=== PATIENT | female | born 1980 | race Asian ===

== ENCOUNTER 2018-07-12 12:13 | Emergency (ER) | payer OTHER, SELFPAY ==
[2018-07-12 12:19] VITALS: BP 136/77; PULSE 72; RESP 16; TEMP 36.8; O2SAT 99; BMI 36.6
--- NOTE | 2018-07-12 12:33 | ED.ABDPAIN ---
HPI - Abdominal Pain <MEL Nolasco - Last Filed: 07/12/18 15:07> General Chief Complaint: Abdominal Pain Stated Complaint: upper abdominal pain Time Seen by Provider: 07/12/18 12:19 Source: patient and family Mode of arrival: ambulatory Limitations: no limitations History of Present Illness HPI narrative: The patient is a 37-year-old female nonsmoker who presents with with a chief complaint of right upper quadrant pain. She states that the right upper quadrant pain is gone on sporadically for several months. However today her pain presented upon waking and has not gone away today. She has not taken anything at home for the pain. She denies any fevers, vomiting or diarrhea. She denies any nausea dysuria urgency or frequency. She states the pain stays in her right upper quadrant does not radiate anywhere. She was started on metformin for concern of prediabetes and weight gain recently. She denies any abdominal surgeries, daily medications other than control metformin. Last bowel movement was today and normal. Related Data Allergies Allergy/AdvReac Type Severity Reaction Status Date / Time No Known Drug Allergies Allergy Verified 07/12/18 12:53 Review of Systems <MEL Nolasco - Last Filed: 07/12/18 15:07> Constitutional Denies body ache(s), Denies chills, Denies fever(s), Denies headache(s) and Denies lethargy ENT Ears, Nose, Mouth, and Throat: Denies headache(s) Cardiovascular Denies chest pain, Denies chest pain at rest, Denies chest pain with activity, Denies syncope and Denies rapid heart rate Respiratory Denies chest congestion, Denies cough and Denies wheezing Gastrointestinal Gastrointestinal: Reports abdominal pain, Denies change in bowel habits, Denies constipation, Reports cramping, Denies diarrhea, Denies nausea and Denies vomiting Genitourinary Denies urinary frequency, Denies dysuria, Denies flank pain, Denies urinary incontinence, Denies urinary hesitancy and Denies urinary urgency Musculoskeletal Reports system reviewed and no additional complaints, except as docu Neurologic Denies confusion, Denies syncope and Denies headache(s) Psychiatric Denies anxiety, Denies confusion, Denies depression, Denies homicidal ideation and Denies suicidal ideation Allergic/Immunologic Denies wheezing PFSH <MEL Nolasco - Last Filed: 07/12/18 15:07> Social History Smoking Status: Never smoker Social History Smoking Status: Never smoker Exam <SERAFIN Nolasco - Last Filed: 07/12/18 15:07> Narrative Exam Narrative: GENERAL: This is a well-nourished, well-developed patient, In no acute distress with at bedside. HEAD: Atraumatic. Normocephalic. No temporal or scalp tenderness. EYES: Pupils equal round and reactive. Extraocular motions intact. No scleral icterus. No injection or drainage. ENT: Nose without bleeding, purulent drainage or septal hematoma. Throat without erythema, tonsillar hypertrophy or exudate. Uvula midline. Airway patent. NECK: Trachea midline. No JVD or lymphadenopathy. Supple, nontender, no meningeal signs. CARDIOVASCULAR: Regular rate and rhythm without murmurs, gallops, or rubs. RESPIRATORY: Clear to auscultation. Breath sounds equal bilaterally. No wheezes, rales, or rhonchi. No cough. No increased respiratory effort. No accessory muscle use. GASTROINTESTINAL: Abdomen soft,, nondistended. No hepato-splenomegaly, or palpable masses. No guarding. Active bowel sounds all 4 quadrants. Positive Ashley sign. EXTREMITIES: No clubbing, cyanosis, or edema. No joint tenderness, effusion, or edema noted. BACK: Nontender without deformity or crepitance. No flank tenderness. NEURO: AOx3. SKIN: No rash or erythema. Initial Vital Signs Initial Vital Signs: Vital Signs Temperature 98.3 F 07/12/18 12:19 Pulse Rate 72 07/12/18 12:19 Respiratory Rate 16 07/12/18 12:19 Blood Pressure 136/77 07/12/18 12:19 Pulse Oximetry 99 07/12/18 12:19 <Laurie Mcdonald DO - Last Filed: 07/12/18 17:24> Initial Vital Signs Initial Vital Signs: Vital Signs Temperature 98.3 F 07/12/18 12:19 Pulse Rate 72 07/12/18 12:19 Respiratory Rate 16 07/12/18 12:19 Blood Pressure 136/77 07/12/18 12:19 Pulse Oximetry 99 07/12/18 12:19 Course <SERAFIN Nolasco - Last Filed: 07/12/18 15:07> Orders Ordered: ED Orders 07/12/18 12:20 Amylase Stat Complete Blood Count AUTO DIFF Stat Comprehensive Metabolic Panel Stat Lipase Stat 07/12/18 12:32 US abdomen complete Stat 07/12/18 13:00 Urine Microscopic Stat Discontinued Medications Sodium Chloride (Normal Saline 0.9%) 1,000 mls @ 1,000 mls/hr IV BOLUS ONE Stop: 07/12/18 13:30 Last Infusion: 07/12/18 13:59 Dose: 0 mls/hr Admin: 07/12/18 12:53 Dose: 1,000 mls/hr Vital Signs - 8 hr 07/12/18 12:19 07/12/18 14:06 Temperature 98.3 F Pulse Rate 72 66 Respiratory Rate 16 17 Blood Pressure 136/77 Blood Pressure [Right Arm] 155/72 H Pulse Oximetry 99 100 <Laurie Mcdonald DO - Last Filed: 07/12/18 17:24> Orders Ordered: ED Orders 07/12/18 12:20 Amylase Stat Complete Blood Count AUTO DIFF Stat Comprehensive Metabolic Panel Stat Lipase Stat 07/12/18 12:32 US abdomen complete Stat 07/12/18 13:00 Urine Microscopic Stat Discontinued Medications Sodium Chloride (Normal Saline 0.9%) 1,000 mls @ 1,000 mls/hr IV BOLUS ONE Stop: 07/12/18 13:30 Last Infusion: 07/12/18 13:59 Dose: 0 mls/hr Admin: 07/12/18 12:53 Dose: 1,000 mls/hr Vital Signs - 8 hr 07/12/18 12:19 07/12/18 14:06 Temperature 98.3 F Pulse Rate 72 66 Respiratory Rate 16 17 Blood Pressure 136/77 Blood Pressure [Right Arm] 155/72 H Pulse Oximetry 99 100 MDM - Abdominal Pain <SERAFIN Nolasco - Last Filed: 07/12/18 15:07> Lab Data Result diagrams: 07/12/18 12:20 07/12/18 12:20 Lab Results 07/12/18 07/12/18 07/12/18 Range/Units 12:20 12:20 13:00 WBC 5.2 (4.5-11.0) X10^3/uL RBC 5.15 (4.0-5.2) X10^6/uL Hgb 14.2 (12.0-16.0) g/dL Hct 41.9 (36-46) % MCV 81.3 (80-100) fL MCH 27.6 (26-34) PG MCHC 33.9 (30-36) % RDW 13.3 (11.6-14.8) % Plt Count 322 (150-400) X10^3/uL Neut % (Auto) 62.0 (50-75) % Lymph % (Auto) 29.9 (25-40) % [place] % (Auto) 6.1 (3-14) % Eos % (Auto) 1.6 L (2-4) % Baso % (Auto) 0.4 (0-2) % Neut # (Auto) 3200 (1951-6344) /uL Lymph # (Auto) 1600 (1686-2587) /uL [place] # (Auto) 300 (0-900) /uL Eos # (Auto) 100 (0-450) /uL Baso # (Auto) 0 (0-100) /uL Sodium 138 (137-145) mmol/L Potassium 3.6 (3.4-5.1) mmol/L Chloride 102 (98-107) mmol/L Carbon Dioxide 24 (22-32) mmol/L BUN 13 (7-17) mg/dL Creatinine 0.70 (0.52-1.04) mg/dL Estimated GFR > 60.0 (>60) mL/min BUN/Creatinine Ratio 18.6 (6-22) Glucose 87 (70-100) mg/dL Calcium 9.1 (8.4-10.2) mg/dL Total Bilirubin 0.3 (0.2-1.3) mg/dL AST 25 (14-36) IU/L ALT 36 (9-52) IU/L Alkaline Phosphatase 47 (38-126) U/L Total Protein 7.9 (6.3-8.2) g/dL Albumin 4.7 (3.5-5.0) g/dL Globulin 3.2 (1.7-4.1) g/dL Albumin/Globulin Ratio 1.5 (1.0-2.8) Amylase 71 (30-110) U/L Lipase 72 (23-300) U/L Urine RBC 0-1/hpf (0-5/HPF) Urine WBC 0-1/hpf (0-5/HPF) Ur Squamous Epith Cells 5-10 /hpf H Urine Bacteria Occasional (0-1) (None) Ur Culture Indicated? Cult not indicated Point of care testing: Point of Care Testing Test Results Negative Urine Dip Bedside Urine Glucose Negative Bedside Urine Bilirubin - Negative Bedside Urine Ketone - Negative Urine Specific [place] 1.025 Bedside Urine Occult Blood +/- Bedside Urine pH 5.5 Bedside Urine Protein - Negative Bedside Urine Urobilinogen - Negative Bedside Urine Nitrite - Negative Bedside Urine Leukocytes - Negative Esterase Imaging Data US - abdomen: Radiologist's impression: [address] [address] Ultrasound Report Signed Patient: Maria E Arauz [facility]#: [id number] : 1980Acct:[id number] Age/Sex: 37 / FDate of Service: 07/12/18 Loc: ED Accession Number: [id number] Procedure: US abdomen complete Ordering Provider: Rachel Cunningham PROCEDURE: US ABDOMEN COMPLETE INDICATIONS: RIGHT UPPER QUADRANT PAIN TECHNIQUE: Real-time scanning was performed of the abdominal and retroperitoneal organs, with image documentation. COMPARISON: None. FINDINGS: Liver: Liver is normal in size and homogeneous in echotexture. Gallbladder: Gallbladder is within normal limits. No sonographic Ashley's sign. Biliary ducts: Intrahepatic bile ducts are non-dilated. Extrahepatic bile duct caliber measures 5.3 mm. Normal is 6-7 mm or less in diameter, or 10 mm or less post-cholecystectomy. Pancreas: Visualized portions of the pancreas are sonographically normal. Spleen: Spleen is normal in size and homogeneous in echotexture. Kidneys: Kidneys are normal in size and echotexture. Right kidney measures 12.2 cm long; left kidney measures 13.2 cm long. No hydronephrosis or nephrolithiasis. No solid masses. Aorta: Visualized aorta is normal in caliber at less than 3 cm. Iliacs: Proximal common iliac arteries are normal in caliber at less than 2.5 cm. IVC: Intrahepatic inferior vena cava is patent. Miscellaneous: No free abdominal fluid. IMPRESSION: Unremarkable ultrasound examination of abdomen. No findings to explain patient's symptoms. Dictated by: Shan Webb M.D. on 07/12/2018 at 14:21 Approved by: Shan Webb M.D. on 07/12/2018 at 14:22 [facility] [place] Narrative Medical decision making narrative: The patient is a 37-year-old female who presents with right upper quadrant pain that has gone on for weeks and got worse over the past 2 days. Given the etiology and positive Ashley sign, I obtained an ultrasound and worked her up for possible gallbladder. She does not have any fever, has normal white blood cell count, hemodynamically stable, and has a normal ultrasound. The patient declined any nausea or pain medication. Upon re-evaluation, she was asleep in the room. I discussed at length that she needs to follow up with her primary care provider. Discussed return precautions of fever with abdominal pain, inability keep down fluids or acute concerns. The patient was hemodynamically stable, comfortable and appear to rest well throughout her stay in the emergency department. She had no questions or concerns upon discharge. <Laurie Mcdonald, DO - Last Filed: 07/12/18 17:24> Lab Data Lab Results 07/12/18 07/12/18 07/12/18 Range/Units 12:20 12:20 13:00 WBC 5.2 (4.5-11.0) X10^3/uL RBC 5.15 (4.0-5.2) X10^6/uL Hgb 14.2 (12.0-16.0) g/dL Hct 41.9 (36-46) % MCV 81.3 (80-100) fL MCH 27.6 (26-34) PG MCHC 33.9 (30-36) % RDW 13.3 (11.6-14.8) % Plt Count 322 (150-400) X10^3/uL Neut % (Auto) 62.0 (50-75) % Lymph % (Auto) 29.9 (25-40) % [place] % (Auto) 6.1 (3-14) % Eos % (Auto) 1.6 L (2-4) % Baso % (Auto) 0.4 (0-2) % Neut # (Auto) 3200 (2427-8195) /uL Lymph # (Auto) 1600 (3658-5430) /uL [place] # (Auto) 300 (0-900) /uL Eos # (Auto) 100 (0-450) /uL Baso # (Auto) 0 (0-100) /uL Sodium 138 (137-145) mmol/L Potassium 3.6 (3.4-5.1) mmol/L Chloride 102 (98-107) mmol/L Carbon Dioxide 24 (22-32) mmol/L BUN 13 (7-17) mg/dL Creatinine 0.70 (0.52-1.04) mg/dL Estimated GFR > 60.0 (>60) mL/min BUN/Creatinine Ratio 18.6 (6-22) Glucose 87 (70-100) mg/dL Calcium 9.1 (8.4-10.2) mg/dL Total Bilirubin 0.3 (0.2-1.3) mg/dL AST 25 (14-36) IU/L ALT 36 (9-52) IU/L Alkaline Phosphatase 47 (38-126) U/L Total Protein 7.9 (6.3-8.2) g/dL Albumin 4.7 (3.5-5.0) g/dL Globulin 3.2 (1.7-4.1) g/dL Albumin/Globulin Ratio 1.5 (1.0-2.8) Amylase 71 (30-110) U/L Lipase 72 (23-300) U/L Urine RBC 0-1/hpf (0-5/HPF) Urine WBC 0-1/hpf (0-5/HPF) Ur Squamous Epith Cells 5-10 /hpf H Urine Bacteria Occasional (0-1) (None) Ur Culture Indicated? Cult not indicated Point of care testing: Point of Care Testing Test Results Negative Urine Dip Bedside Urine Glucose Negative Bedside Urine Bilirubin - Negative Bedside Urine Ketone - Negative Urine Specific [place] 1.025 Bedside Urine Occult Blood +/- Bedside Urine pH 5.5 Bedside Urine Protein - Negative Bedside Urine Urobilinogen - Negative Bedside Urine Nitrite - Negative Bedside Urine Leukocytes - Negative Esterase Discharge Plan Departure Patient Disposition: Home Clinical Impression: Abdominal pain Qualifiers: Abdominal location: right upper quadrant Qualified Code(s): R10.11 - Right upper quadrant pain Discharge Date/Time: 07/12/18 14:53 Interventions: ED Discharge Assessment Last Done: 07/12/18 14:52 Instructions: DI for Abdominal Pain-Adult Activity Restrictions/Additional Instructions: Her lab work, urinalysis and ultrasound came back well today. Please follow up with primary care provider. Please come back to the emergency department for acute concerns including concern of heart attack or stroke, combination of abdominal pain with fever, inability keep down food or fluids. Please follow up with primary care provider in the next few days. Referrals: Lisa Shaffer MD [Primary Care Provider] - Stand Alone Forms: Work Release Note <Laurie Mcdonald DO - Last Filed: 07/12/18 17:24> Cosign ED Attending Cosignature Attestation: I was immediately available in the department for consultation. Documentation has been reviewed. I agree with assessment and plan.
--- NOTE | 2018-07-12 12:37 | ED_ITS ---
HPI - Abdominal Pain <MEL Nolasco - Last Filed: 07/12/18 15:07> General Chief Complaint: Abdominal Pain Stated Complaint: upper abdominal pain Time Seen by Provider: 07/12/18 12:19 Source: patient and family Mode of arrival: ambulatory Limitations: no limitations History of Present Illness HPI narrative: The patient is a 37-year-old female nonsmoker who presents with with a chief complaint of right upper quadrant pain. She states that the right upper quadrant pain is gone on sporadically for several months. However today her pain presented upon waking and has not gone away today. She has not taken anything at home for the pain. She denies any fevers, vomiting or diarrhea. She denies any nausea dysuria urgency or frequency. She states the pain stays in her right upper quadrant does not radiate anywhere. She was started on metformin for concern of prediabetes and weight gain recently. She denies any abdominal surgeries, daily medications other than control metformin. Last bowel movement was today and normal. Related Data Allergies Allergy/AdvReac Type Severity Reaction Status Date / Time No Known Drug Allergies Allergy Verified 07/12/18 12:53 Review of Systems <MEL Nolasco - Last Filed: 07/12/18 15:07> Constitutional Denies body ache(s), Denies chills, Denies fever(s), Denies headache(s) and Denies lethargy ENT Ears, Nose, Mouth, and Throat: Denies headache(s) Cardiovascular Denies chest pain, Denies chest pain at rest, Denies chest pain with activity, Denies syncope and Denies rapid heart rate Respiratory Denies chest congestion, Denies cough and Denies wheezing Gastrointestinal Gastrointestinal: Reports abdominal pain, Denies change in bowel habits, Denies constipation, Reports cramping, Denies diarrhea, Denies nausea and Denies vomiting Genitourinary Denies urinary frequency, Denies dysuria, Denies flank pain, Denies urinary incontinence, Denies urinary hesitancy and Denies urinary urgency Musculoskeletal Reports system reviewed and no additional complaints, except as docu Neurologic Denies confusion, Denies syncope and Denies headache(s) Psychiatric Denies anxiety, Denies confusion, Denies depression, Denies homicidal ideation and Denies suicidal ideation Allergic/Immunologic Denies wheezing PFSH <MEL Nolasco - Last Filed: 07/12/18 15:07> Social History Smoking Status: Never smoker Social History Smoking Status: Never smoker Exam <SERAFIN Nolasco - Last Filed: 07/12/18 15:07> Narrative Exam Narrative: GENERAL: This is a well-nourished, well-developed patient, In no acute distress with at bedside. HEAD: Atraumatic. Normocephalic. No temporal or scalp tenderness. EYES: Pupils equal round and reactive. Extraocular motions intact. No scleral icterus. No injection or drainage. ENT: Nose without bleeding, purulent drainage or septal hematoma. Throat without erythema, tonsillar hypertrophy or exudate. Uvula midline. Airway patent. NECK: Trachea midline. No JVD or lymphadenopathy. Supple, nontender, no meningeal signs. CARDIOVASCULAR: Regular rate and rhythm without murmurs, gallops, or rubs. RESPIRATORY: Clear to auscultation. Breath sounds equal bilaterally. No wheezes, rales, or rhonchi. No cough. No increased respiratory effort. No accessory muscle use. GASTROINTESTINAL: Abdomen soft,, nondistended. No hepato-splenomegaly, or palpable masses. No guarding. Active bowel sounds all 4 quadrants. Positive Ashley sign. EXTREMITIES: No clubbing, cyanosis, or edema. No joint tenderness, effusion, or edema noted. BACK: Nontender without deformity or crepitance. No flank tenderness. NEURO: AOx3. SKIN: No rash or erythema. Initial Vital Signs Initial Vital Signs: Vital Signs Temperature 98.3 F 07/12/18 12:19 Pulse Rate 72 07/12/18 12:19 Respiratory Rate 16 07/12/18 12:19 Blood Pressure 136/77 07/12/18 12:19 Pulse Oximetry 99 07/12/18 12:19 <Laurie Mcdonald DO - Last Filed: 07/12/18 17:24> Initial Vital Signs Initial Vital Signs: Vital Signs Temperature 98.3 F 07/12/18 12:19 Pulse Rate 72 07/12/18 12:19 Respiratory Rate 16 07/12/18 12:19 Blood Pressure 136/77 07/12/18 12:19 Pulse Oximetry 99 07/12/18 12:19 Course <SERAFIN Nolasco - Last Filed: 07/12/18 15:07> Orders Ordered: ED Orders 07/12/18 12:20 Amylase Stat Complete Blood Count AUTO DIFF Stat Comprehensive Metabolic Panel Stat Lipase Stat 07/12/18 12:32 US abdomen complete Stat 07/12/18 13:00 Urine Microscopic Stat Discontinued Medications Sodium Chloride (Normal Saline 0.9%) 1,000 mls @ 1,000 mls/hr IV BOLUS ONE Stop: 07/12/18 13:30 Last Infusion: 07/12/18 13:59 Dose: 0 mls/hr Admin: 07/12/18 12:53 Dose: 1,000 mls/hr Vital Signs - 8 hr 07/12/18 12:19 07/12/18 14:06 Temperature 98.3 F Pulse Rate 72 66 Respiratory Rate 16 17 Blood Pressure 136/77 Blood Pressure [Right Arm] 155/72 H Pulse Oximetry 99 100 <Laurie Mcdonald DO - Last Filed: 07/12/18 17:24> Orders Ordered: ED Orders 07/12/18 12:20 Amylase Stat Complete Blood Count AUTO DIFF Stat Comprehensive Metabolic Panel Stat Lipase Stat 07/12/18 12:32 US abdomen complete Stat 07/12/18 13:00 Urine Microscopic Stat Discontinued Medications Sodium Chloride (Normal Saline 0.9%) 1,000 mls @ 1,000 mls/hr IV BOLUS ONE Stop: 07/12/18 13:30 Last Infusion: 07/12/18 13:59 Dose: 0 mls/hr Admin: 07/12/18 12:53 Dose: 1,000 mls/hr Vital Signs - 8 hr 07/12/18 12:19 07/12/18 14:06 Temperature 98.3 F Pulse Rate 72 66 Respiratory Rate 16 17 Blood Pressure 136/77 Blood Pressure [Right Arm] 155/72 H Pulse Oximetry 99 100 MDM - Abdominal Pain <SERAFIN Nolasco - Last Filed: 07/12/18 15:07> Lab Data Result diagrams: 07/12/18 12:20 07/12/18 12:20 Lab Results 07/12/18 07/12/18 07/12/18 Range/Units 12:20 12:20 13:00 WBC 5.2 (4.5-11.0) X10^3/uL RBC 5.15 (4.0-5.2) X10^6/uL Hgb 14.2 (12.0-16.0) g/dL Hct 41.9 (36-46) % MCV 81.3 (80-100) fL MCH 27.6 (26-34) PG MCHC 33.9 (30-36) % RDW 13.3 (11.6-14.8) % Plt Count 322 (150-400) X10^3/uL Neut % (Auto) 62.0 (50-75) % Lymph % (Auto) 29.9 (25-40) % [place] % (Auto) 6.1 (3-14) % Eos % (Auto) 1.6 L (2-4) % Baso % (Auto) 0.4 (0-2) % Neut # (Auto) 3200 (0730-2237) /uL Lymph # (Auto) 1600 (4491-5786) /uL [place] # (Auto) 300 (0-900) /uL Eos # (Auto) 100 (0-450) /uL Baso # (Auto) 0 (0-100) /uL Sodium 138 (137-145) mmol/L Potassium 3.6 (3.4-5.1) mmol/L Chloride 102 (98-107) mmol/L Carbon Dioxide 24 (22-32) mmol/L BUN 13 (7-17) mg/dL Creatinine 0.70 (0.52-1.04) mg/dL Estimated GFR > 60.0 (>60) mL/min BUN/Creatinine Ratio 18.6 (6-22) Glucose 87 (70-100) mg/dL Calcium 9.1 (8.4-10.2) mg/dL Total Bilirubin 0.3 (0.2-1.3) mg/dL AST 25 (14-36) IU/L ALT 36 (9-52) IU/L Alkaline Phosphatase 47 (38-126) U/L Total Protein 7.9 (6.3-8.2) g/dL Albumin 4.7 (3.5-5.0) g/dL Globulin 3.2 (1.7-4.1) g/dL Albumin/Globulin Ratio 1.5 (1.0-2.8) Amylase 71 (30-110) U/L Lipase 72 (23-300) U/L Urine RBC 0-1/hpf (0-5/HPF) Urine WBC 0-1/hpf (0-5/HPF) Ur Squamous Epith Cells 5-10 /hpf H Urine Bacteria Occasional (0-1) (None) Ur Culture Indicated? Cult not indicated Point of care testing: Point of Care Testing Test Results Negative Urine Dip Bedside Urine Glucose Negative Bedside Urine Bilirubin - Negative Bedside Urine Ketone - Negative Urine Specific [place] 1.025 Bedside Urine Occult Blood +/- Bedside Urine pH 5.5 Bedside Urine Protein - Negative Bedside Urine Urobilinogen - Negative Bedside Urine Nitrite - Negative Bedside Urine Leukocytes - Negative Esterase Imaging Data US - abdomen: Radiologist's impression: [address] [address] Ultrasound Report Signed Patient: Maria E Arauz [facility]#: [id number] : 1980Acct:[id number] Age/Sex: 37 / FDate of Service: 07/12/18 Loc: ED Accession Number: [id number] Procedure: US abdomen complete Ordering Provider: Rachel Cunningham PROCEDURE: US ABDOMEN COMPLETE INDICATIONS: RIGHT UPPER QUADRANT PAIN TECHNIQUE: Real-time scanning was performed of the abdominal and retroperitoneal organs, with image documentation. COMPARISON: None. FINDINGS: Liver: Liver is normal in size and homogeneous in echotexture. Gallbladder: Gallbladder is within normal limits. No sonographic Ashley's sign. Biliary ducts: Intrahepatic bile ducts are non-dilated. Extrahepatic bile duct caliber measures 5.3 mm. Normal is 6-7 mm or less in diameter, or 10 mm or less post-cholecystectomy. Pancreas: Visualized portions of the pancreas are sonographically normal. Spleen: Spleen is normal in size and homogeneous in echotexture. Kidneys: Kidneys are normal in size and echotexture. Right kidney measures 12.2 cm long; left kidney measures 13.2 cm long. No hydronephrosis or nephrolithiasis. No solid masses. Aorta: Visualized aorta is normal in caliber at less than 3 cm. Iliacs: Proximal common iliac arteries are normal in caliber at less than 2.5 cm. IVC: Intrahepatic inferior vena cava is patent. Miscellaneous: No free abdominal fluid. IMPRESSION: Unremarkable ultrasound examination of abdomen. No findings to explain patient's symptoms. Dictated by: Shan Webb M.D. on 07/12/2018 at 14:21 Approved by: Shan Webb M.D. on 07/12/2018 at 14:22 [facility] Narrative Medical decision making narrative: The patient is a 37-year-old female who presents with right upper quadrant pain that has gone on for weeks and got worse over the past 2 days. Given the etiology and positive Ashley sign, I obtained an ultrasound and worked her up for possible gallbladder. She does not have any fever, has normal white blood cell count, hemodynamically stable, and has a normal ultrasound. The patient declined any nausea or pain medication. Upon re-evaluation, she was asleep in the room. I discussed at length that she needs to follow up with her primary care provider. Discussed return precautions of fever with abdominal pain, inability keep down fluids or acute concerns. The patient was hemodynamically stable, comfortable and appear to rest well throughout her stay in the emergency department. She had no questions or concerns upon discharge. <Laurie Mcdonald, DO - Last Filed: 07/12/18 17:24> Lab Data Lab Results 07/12/18 07/12/18 07/12/18 Range/Units 12:20 12:20 13:00 WBC 5.2 (4.5-11.0) X10^3/uL RBC 5.15 (4.0-5.2) X10^6/uL Hgb 14.2 (12.0-16.0) g/dL Hct 41.9 (36-46) % MCV 81.3 (80-100) fL MCH 27.6 (26-34) PG MCHC 33.9 (30-36) % RDW 13.3 (11.6-14.8) % Plt Count 322 (150-400) X10^3/uL Neut % (Auto) 62.0 (50-75) % Lymph % (Auto) 29.9 (25-40) % [place] % (Auto) 6.1 (3-14) % Eos % (Auto) 1.6 L (2-4) % Baso % (Auto) 0.4 (0-2) % Neut # (Auto) 3200 (3854-9028) /uL Lymph # (Auto) 1600 (3416-9156) /uL [place] # (Auto) 300 (0-900) /uL Eos # (Auto) 100 (0-450) /uL Baso # (Auto) 0 (0-100) /uL Sodium 138 (137-145) mmol/L Potassium 3.6 (3.4-5.1) mmol/L Chloride 102 (98-107) mmol/L Carbon Dioxide 24 (22-32) mmol/L BUN 13 (7-17) mg/dL Creatinine 0.70 (0.52-1.04) mg/dL Estimated GFR > 60.0 (>60) mL/min BUN/Creatinine Ratio 18.6 (6-22) Glucose 87 (70-100) mg/dL Calcium 9.1 (8.4-10.2) mg/dL Total Bilirubin 0.3 (0.2-1.3) mg/dL AST 25 (14-36) IU/L ALT 36 (9-52) IU/L Alkaline Phosphatase 47 (38-126) U/L Total Protein 7.9 (6.3-8.2) g/dL Albumin 4.7 (3.5-5.0) g/dL Globulin 3.2 (1.7-4.1) g/dL Albumin/Globulin Ratio 1.5 (1.0-2.8) Amylase 71 (30-110) U/L Lipase 72 (23-300) U/L Urine RBC 0-1/hpf (0-5/HPF) Urine WBC 0-1/hpf (0-5/HPF) Ur Squamous Epith Cells 5-10 /hpf H Urine Bacteria Occasional (0-1) (None) Ur Culture Indicated? Cult not indicated Point of care testing: Point of Care Testing Test Results Negative Urine Dip Bedside Urine Glucose Negative Bedside Urine Bilirubin - Negative Bedside Urine Ketone - Negative Urine Specific [place] 1.025 Bedside Urine Occult Blood +/- Bedside Urine pH 5.5 Bedside Urine Protein - Negative Bedside Urine Urobilinogen - Negative Bedside Urine Nitrite - Negative Bedside Urine Leukocytes - Negative Esterase Discharge Plan Departure Patient Disposition: Home Clinical Impression: Abdominal pain Qualifiers: Abdominal location: right upper quadrant Qualified Code(s): R10.11 - Right upper quadrant pain Discharge Date/Time: 07/12/18 14:53 Interventions: ED Discharge Assessment Last Done: 07/12/18 14:52 Instructions: DI for Abdominal Pain-Adult Activity Restrictions/Additional Instructions: Her lab work, urinalysis and ultrasound came back well today. Please follow up with primary care provider. Please come back to the emergency department for acute concerns including concern of heart attack or stroke, combination of a bdominal pain with fever, inability keep down food or fluids. Please follow up with primary care provider in the next few days. Referrals: Lisa Shaffer MD [Primary Care Provider] - Stand Alone Forms: Work Release Note <Laurie Mcdonald DO - Last Filed: 07/12/18 17:24> Cosign ED Attending Cosignature Attestation: I was immediately available in the department for consultation. Documentation has been reviewed. I agree with assessment and plan.
[2018-07-12 12:42] LABS: Add Manual Diff / Slide Review NO; Basophils Absolute Auto 0 /uL (0-100); Basophils Percent Auto 0.4 % (0-2); Eosinophils Absolute Auto 100 /uL (0-450); Eosinophils Percent Auto 1.6 % (2-4); Hematocrit 41.9 % (36-46); Hemoglobin 14.2 g/dL (12.0-16.0); Lymphocytes Absolute Auto 1600 /uL (1100-4500); Lymphocytes Percent Auto 29.9 % (25-40); Mean Corpuscular HGB Conc 33.9 % (30-36); Mean Corpuscular Hemoglobin 27.6 PG (26-34); Mean Corpuscular Volume 81.3 fL (80-100); Monocytes Absolute Auto 300 /uL (0-900); Monocytes Percent Auto 6.1 % (3-14); Neutrophils Absolute Auto 3200 /uL (1500-7000); Platelet Count 322 X10^3/uL (150-400); Red Blood Cell Count 5.15 X10^6/uL (4.0-5.2); Red Cell Distribution Width 13.3 % (11.6-14.8); White Blood Cell Count 5.2 X10^3/uL (4.5-11.0)
[2018-07-12 12:44] LABS: Alanine Aminotransferase 36 IU/L (9-52); Albumin 4.7 g/dL (3.5-5.0); Albumin Globulin Ratio 1.5 (1.0-2.8); Alkaline Phosphatase 47 U/L (38-126); Amylase 71 U/L (30-110); Aspartate Aminotransferase 25 IU/L (14-36); BUN Creatinine Ratio 18.6 (6-22); Bilirubin Total 0.3 mg/dL (0.2-1.3); Blood Urea Nitrogen 13 mg/dL (7-17); Calcium 9.1 mg/dL (8.4-10.2); Carbon Dioxide 24 mmol/L (22-32); Chloride 102 mmol/L (98-107); Estimated Glomerular Filt Rate > 60.0 mL/min (>60); Globulin 3.2 g/dL (1.7-4.1); Glucose 87 mg/dL (70-100); HEMOLYSIS < 15 (0-50); Lipase 72 U/L (23-300); Potassium 3.6 mmol/L (3.4-5.1); Sodium 138 mmol/L (137-145); Total Protein 7.9 g/dL (6.3-8.2)
[2018-07-12] MEDS: SODIUM CHLORIDE 0.9% 1,000 ML 1000 ML IV (12:53)
[2018-07-12 13:51] LABS: Bacteria Urine Occasional (0-1); Culture Indicated Urine Cult Not Indicated; RBC Urine 0-1/HPF (0-5/HPF); Squamous Epithelial Cell Urine 5-10 /HPF; WBC Urine 0-1/HPF (0-5/HPF)
[2018-07-12 14:06] VITALS: BP 155/72; PULSE 66; RESP 17; O2SAT 100
== END 2018-07-12 14:53 | disposition home or self-care (01) ==
PROVIDERS: Emergency Provider Nurse Practitioner Family; PCP Family Medicine
DX: R10.11 Right upper quadrant pain (principal)
CPT/HCPCS: 36591; 76700; 80053; 81003; 81015; 81025; 82150; 83690; 85025; 96360; 99283; 99284

== ENCOUNTER 2018-10-16 19:25 | Emergency (ER) | payer OTHER, SELFPAY ==
[2018-10-16 19:32] VITALS: BP 135/85; PULSE 67; RESP 14; TEMP 36.1; O2SAT 98
[2018-10-16 21:10] LABS: Add Manual Diff / Slide Review NO; Basophils Absolute Auto 0 /uL (0-100); Basophils Percent Auto 0.7 % (0-2); Eosinophils Absolute Auto 200 /uL (0-450); Eosinophils Percent Auto 2.8 % (2-4); Hematocrit 42.9 % (36-46); Hemoglobin 14.3 g/dL (12.0-16.0); Lymphocytes Absolute Auto 1900 /uL (1100-4500); Lymphocytes Percent Auto 31.6 % (25-40); Mean Corpuscular HGB Conc 33.4 % (30-36); Mean Corpuscular Hemoglobin 27.3 PG (26-34); Mean Corpuscular Volume 81.7 fL (80-100); Monocytes Absolute Auto 400 /uL (0-900); Monocytes Percent Auto 6.2 % (3-14); Neutrophils Absolute Auto 3500 /uL (1500-7000); Neutrophils Percent Auto 58.7 % (50-75); Platelet Count 234 X10^3/uL (150-400); Red Blood Cell Count 5.26 X10^6/uL (4.0-5.2); Red Cell Distribution Width 13.9 % (11.6-14.8)
[2018-10-16 21:25] LABS: Alanine Aminotransferase 54 IU/L (9-52); Albumin 4.5 g/dL (3.5-5.0); Albumin Globulin Ratio 1.4 (1.0-2.8); Alkaline Phosphatase 61 U/L (38-126); Aspartate Aminotransferase 38 IU/L (14-36); BUN Creatinine Ratio 23.3 (6-22); Bilirubin Total 0.4 mg/dL (0.2-1.3); Blood Urea Nitrogen 14 mg/dL (7-17); Calcium 8.8 mg/dL (8.4-10.2); Carbon Dioxide 22 mmol/L (22-32); Chloride 106 mmol/L (98-107); Estimated Glomerular Filt Rate > 60.0 mL/min (>60); Globulin 3.2 g/dL (1.7-4.1); Glucose 96 mg/dL (70-100); HEMOLYSIS 20 (0-50); Lipase 83 U/L (23-300); Sodium 141 mmol/L (137-145); Total Protein 7.7 g/dL (6.3-8.2)
[2018-10-16] MEDS: PANTOPRAZOLE 40 MG VIAL IV (21:26)
[2018-10-16] MEDS: KETOROLAC 60 MG/2 ML VIAL 15 MG IV (21:26)
[2018-10-16] MEDS: ONDANSETRON 4 MG/2 ML INJ IV (21:26)
[2018-10-16] MEDS: SODIUM CHLORIDE 0.9% 1,000 ML 1000 ML IV (21:27)
--- NOTE | 2018-10-16 21:36 | ED.WEAKNESS ---
HPI - Weakness General Chief complaint: Weakness Stated complaint: HEADACHES FATIGUE WEAKNESS FEELS LIKE FVER Time Seen by Provider: 10/16/18 19:27 Source: patient and family Mode of arrival: ambulatory Limitations: no limitations History of Present Illness HPI Narrative: 38-year-old female without significant medical history presents with her and a chief complaint of significant headache over the course of the day, gradually worsening. She denies any recent injury nor any objective fever. She states she has been generally fatigued with poor sleep and poor dietary habits for the past few weeks and admits to frequent episodes of loose stool and generalized abdominal pain after eating. She denies any radiation of the pain. She denies any specific provocation or palliation of her head pain. She denies any runny nose, sore throat or cough. She largely has very nonspecific complaints and states she just does not feel great, she feels worn down and weak MD Complaint: generalized weakness and lack of energy Onset (ago): week(s) Duration: constant Location: generalized Migration: none Severity: mild Relieving factors: none Exacerbating factors: none Associated symptoms: denies other symptoms Related Data Previous Rx's Medication Instructions Recorded hyoscyamine sulfate 0.125 mg PO BID-QID PRN #10 tab 10/16/18 ondansetron 4 mg PO Q6H PRN #10 tab 10/16/18 Allergies Allergy/AdvReac Type Severity Reaction Status Date / Time No Known Drug Allergies Allergy Verified 10/16/18 19:36 Review of Systems Constitutional Denies chills, Denies fever(s), Reports headache(s), Denies lethargy and Denies weakness Eyes Denies change in vision, Denies eye discharge, Denies irritation and Denies loss of vision ENT Ears, Nose, Mouth, and Throat: Denies change in voice, Reports headache(s), Denies neck pain and Denies sore throat Cardiovascular Denies chest pain, Denies irregular heart rhythm, Denies lightheadedness, Denies palpitations, Denies dyspnea, Denies dyspnea on exertion and Denies orthopnea Respiratory Denies cough, Denies dyspnea, Denies dyspnea on exertion and Denies wheezing Gastrointestinal Gastrointestinal: Reports abdominal pain, Denies change in bowel habits, Denies diarrhea, Denies nausea and Denies vomiting Genitourinary Denies hematuria, Denies flank pain, Denies urinary incontinence and Denies urinary urgency Musculoskeletal Denies neck pain Integumentary/Breasts Denies pruritus, Denies erythema, Denies rash and Denies wounds Neurologic Denies confusion, Reports headache(s), Denies loss of vision and Denies weakness Psychiatric Denies anxiety, Denies confusion, Denies depression, Denies homicidal ideation and Denies suicidal ideation Endocrine Denies palpitations Hematologic/Lymphatic Denies easy bruising Allergic/Immunologic Denies wheezing PFSH Social History Smoking Status: Never smoker Social History Smoking Status: Never smoker Exam Narrative Exam Narrative: GENERAL: This is a well-nourished, well-developed patient, in mild distress. Obese, uncomfortable HEAD: Atraumatic. Normocephalic. No temporal or scalp tenderness. EYES: Pupils equal round and reactive. Extraocular motions intact. No scleral icterus. No injection or drainage. ENT: Nose without bleeding, purulent drainage or septal hematoma. Throat without erythema, tonsillar hypertrophy or exudate. Uvula midline. Airway patent. NECK: Trachea midline. No JVD or lymphadenopathy. Supple, nontender, no meningeal signs. CARDIOVASCULAR: Regular rate and rhythm without murmurs, gallops, or rubs. RESPIRATORY: Clear to auscultation. Breath sounds equal bilaterally. No wheezes, rales, or rhonchi. GASTROINTESTINAL: Abdomen soft, non-tender, nondistended. No hepato-splenomegaly, or palpable masses. No guarding. EXTREMITIES: No clubbing, cyanosis, or edema. No joint tenderness, effusion, or edema noted. BACK: Nontender without deformity or crepitance. No flank tenderness. NEURO: AOx3. SKIN: No rash or erythema. Initial Vital Signs Initial Vital Signs: Vital Signs Temperature 97.0 F L 10/16/18 19:32 Pulse Rate 67 10/16/18 19:32 Respiratory Rate 14 10/16/18 19:32 Blood Pressure 135/85 10/16/18 19:32 Pulse Oximetry 98 10/16/18 19:32 Course Orders Ordered: ED Orders 10/16/18 21:00 Comprehensive Metabolic Panel Stat Lipase Stat 10/16/18 21:05 Complete Blood Count AUTO DIFF Stat 10/16/18 21:44 US abdomen limited Stat Discontinued Medications Sodium Chloride (Normal Saline 0.9%) 1,000 mls @ 1,000 mls/hr IV BOLUS ONE Stop: 10/16/18 20:37 Last Infusion: 10/16/18 23:01 Dose: 0 mls/hr Admin: 10/16/18 21:27 Dose: 1,000 mls/hr Ketorolac Tromethamine (Toradol) 15 mg IV NOW ONE Stop: 10/16/18 19:39 Last Admin: 10/16/18 21:26 Dose: 15 mg Ondansetron HCl (Zofran) 4 mg IV NOW ONE Stop: 10/16/18 19:40 Last Admin: 10/16/18 21:26 Dose: 4 mg Pantoprazole Sodium (Protonix) 40 mg IV NOW ONE Stop: 10/16/18 19:39 Last Admin: 10/16/18 21:26 Dose: 40 mg Vital Signs - 8 hr 10/16/18 19:32 10/16/18 23:02 Temperature 97.0 F L Pulse Rate 67 78 Respiratory Rate 14 16 Blood Pressure 135/85 134/76 Pulse Oximetry 98 98 MDM - Weakness Lab Data Result diagrams: 10/16/18 21:05 10/16/18 21:00 Lab Results 10/16/18 10/16/18 Range/Units 21:00 21:05 WBC 6.0 (4.5-11.0) X10^3/uL RBC 5.26 H (4.0-5.2) X10^6/uL Hgb 14.3 (12.0-16.0) g/dL Hct 42.9 (36-46) % MCV 81.7 (80-100) fL MCH 27.3 (26-34) PG MCHC 33.4 (30-36) % RDW 13.9 (11.6-14.8) % Plt Count 234 (150-400) X10^3/uL Neut % (Auto) 58.7 (50-75) % Lymph % (Auto) 31.6 (25-40) % [place] % (Auto) 6.2 (3-14) % Eos % (Auto) 2.8 (2-4) % Baso % (Auto) 0.7 (0-2) % Neut # (Auto) 3500 (9322-3601) /uL Lymph # (Auto) 1900 (0048-0260) /uL [place] # (Auto) 400 (0-900) /uL Eos # (Auto) 200 (0-450) /uL Baso # (Auto) 0 (0-100) /uL Sodium 141 (137-145) mmol/L Potassium 4.0 (3.4-5.1) mmol/L Chloride 106 (98-107) mmol/L Carbon Dioxide 22 (22-32) mmol/L BUN 14 (7-17) mg/dL Creatinine 0.60 (0.52-1.04) mg/dL Estimated GFR > 60.0 (>60) mL/min BUN/Creatinine Ratio 23.3 H (6-22) Glucose 96 (70-100) mg/dL Calcium 8.8 (8.4-10.2) mg/dL Total Bilirubin 0.4 (0.2-1.3) mg/dL AST 38 H (14-36) IU/L ALT 54 H (9-52) IU/L Alkaline Phosphatase 61 (38-126) U/L Total Protein 7.7 (6.3-8.2) g/dL Albumin 4.5 (3.5-5.0) g/dL Globulin 3.2 (1.7-4.1) g/dL Albumin/Globulin Ratio 1.4 (1.0-2.8) Lipase 83 (23-300) U/L Point of Care Testing Test Results Negative Urine Dip Bedside Urine Glucose Negative Bedside Urine Bilirubin - Negative Bedside Urine Ketone - Negative Urine Specific [place] 1.025 Bedside Urine Occult Blood - Negative Bedside Urine pH 6.0 Bedside Urine Protein - Negative Bedside Urine Urobilinogen - Negative Bedside Urine Nitrite - Negative Bedside Urine Leukocytes +/- 15 Esterase Imaging Data US - abdomen: Radiologist's impression: Mild fatty infiltration of the liver Discharge Plan Departure Patient Disposition: Home Clinical Impression: Headache Qualifiers: Headache type: other headache syndrome Qualified Code(s): G44.89 - Other headache syndrome Abdominal pain Qualifiers: Abdominal location: generalized Qualified Code(s): R10.84 - Generalized abdominal pain Discharge Date/Time: 10/16/18 23:03 Interventions: ED Discharge Assessment Last Done: 10/16/18 23:02 Instructions: DI for Dehydration -- Adult, DI for Headache Activity Restrictions/Additional Instructions: *You have been diagnosed with [acute on chronic abdominal pain, headache resolved] *What to do: *Take medications as directed *Follow up with your primary care provider in 2-3 days, call for an appointment. Let them know you were seen in the Emergency Department and that we ask that you be seen in follow up *Return to ER if you should have any new, worsening or concerning symptoms Prescriptions: New hyoscyamine sulfate 0.125 mg tablet 0.125 mg PO BID-QID PRN (Reason: dyspepsia) Qty: 10 RF: 0 ondansetron 4 mg tablet,disintegrating 4 mg PO Q6H PRN (Reason: nausea and vomiting) Qty: 10 RF: 0 Referrals: Lisa Shaffer MD [Primary Care Provider] -
--- NOTE | 2018-10-16 21:44 | DI.US.S_ITS ---
PROCEDURE: US ABDOMEN LIMITED INDICATIONS: PAIN TECHNIQUE: Real-time focused scanning was performed of the abdomen, with image documentation. COMPARISON: None. FINDINGS: The liver is mildly enlarged at 18.8 cm and diameter. The liver is noted to be diffusely echogenic when compared to the right kidney, which does result in difficulty evaluating for subtle liver lesions. No large liver lesion is identified. The common bile duct and intrahepatic biliary ducts are within normal limits. The gallbladder is also within normal limits without cholelithiasis or gallbladder wall inflammation. The pancreas is unremarkable. Imaged portions of the right kidney are within normal limits. However, the right kidney was not completely evaluated. The abdominal aorta and inferior vena cava are unremarkable. IMPRESSION: 1. No cholelithiasis or evidence to suggest acute cholecystitis. 2. Hepatomegaly with associated mild hepatic steatosis. Note: The preliminary [facility] report and the final report are concordant. Dictated by: Abhilash Sewell M.D. on 10/16/2018 at 23:33 Approved by: Abhilash Sewell M.D. on 10/16/2018 at 23:34
[2018-10-16 23:02] VITALS: BP 134/76; PULSE 78; RESP 16; O2SAT 98
--- NOTE | 2018-10-17 03:11 | ED_ITS ---
HPI - Weakness General Chief complaint: Weakness Stated complaint: HEADACHES FATIGUE WEAKNESS FEELS LIKE FVER Time Seen by Provider: 10/16/18 19:27 Source: patient and family Mode of arrival: ambulatory Limitations: no limitations History of Present Illness HPI Narrative: 38-year-old female without significant medical history presents with her and a chief complaint of significant headache over the course o f the day, gradually worsening. She denies any recent injury nor any objective fever. She states she has been generally fatigued with poor sleep and poor dietary habits for the past few weeks and admits to frequent episodes of loose stool and generalized abdominal pain after eating. She denies any radiation of the pain. She denies any specific provocation or palliation of her head pain. She denies any runny nose, sore throat or cough. She largely has very nonspecific complaints and states she just does not feel great, she feels worn down and weak MD Complaint: generalized weakness and lack of energy Onset (ago): week(s) Duration: constant Location: generalized Migration: none Severity: mild Relieving factors: none Exacerbating factors: none Associated symptoms: denies other symptoms Related Data Previous Rx's Medication Instructions Recorded hyoscyamine sulfate 0.125 mg PO BID-QID PRN #10 tab 10/16/18 ondansetron 4 mg PO Q6H PRN #10 tab 10/16/18 Allergies Allergy/AdvReac Type Severity Reaction Status Date / Time No Known Drug Allergies Allergy Verified 10/16/18 19:36 Review of Systems Constitutional Denies chills, Denies fever(s), Reports headache(s), Denies lethargy and Denies weakness Eyes Denies change in vision, Denies eye discharge, Denies irritation and Denies loss of vision ENT Ears, Nose, Mouth, and Throat: Denies change in voice, Reports headache(s), Denies neck pain and Denies sore throat Cardiovascular Denies chest pain, Denies irregular heart rhythm, Denies lightheadedness, Denies palpitations, Denies dyspnea, Denies dyspnea on exertion and Denies orthopnea Respiratory Denies cough, Denies dyspnea, Denies dyspnea on exertion and Denies wheezing Gastrointestinal Gastrointestinal: Reports abdominal pain, Denies change in bowel habits, Denies diarrhea, Denies nausea and Denies vomiting Genitourinary Denies hematuria, Denies flank pain, Denies urinary incontinence and Denies urinary urgency Musculoskeletal Denies neck pain Integumentary/Breasts Denies pruritus, Denies erythema, Denies rash and Denies wounds Neurologic Denies confusion, Reports headache(s), Denies loss of vision and Denies weakness Psychiatric Denies anxiety, Denies confusion, Denies depression, Denies homicidal ideation and Denies suicidal ideation Endocrine Denies palpitations Hematologic/Lymphatic Denies easy bruising Allergic/Immunologic Denies wheezing PFSH Social History Smoking Status: Never smoker Social History Smoking Status: Never smoker Exam Narrative Exam Narrative: GENERAL: This is a well-nourished, well-developed patient, in mild distress. Obese, uncomfortable HEAD: Atraumatic. Normocephalic. No temporal or scalp tenderness. EYES: Pupils equal round and reactive. Extraocular motions intact. No scleral icterus. No injection or drainage. ENT: Nose without bleeding, purulent drainage or septal hematoma. Throat without erythema, tonsillar hypertrophy or exudate. Uvula midline. Airway patent. NECK: Trachea midline. No JVD or lymphadenopathy. Supple, nontender, no meningeal signs. CARDIOVASCULAR: Regular rate and rhythm without murmurs, gallops, or rubs. RESPIRATORY: Clear to auscultation. Breath sounds equal bilaterally. No wheezes, rales, or rhonchi. GASTROINTESTINAL: Abdomen soft, non-tender, nondistended. No hepato- splenomegaly, or palpable masses. No guarding. EXTREMITIES: No clubbing, cyanosis, or edema. No joint tenderness, effusion, or edema noted. BACK: Nontender without deformity or crepitance. No flank tenderness. NEURO: AOx3. SKIN: No rash or erythema. Initial Vital Signs Initial Vital Signs: Vital Signs Temperature 97.0 F L 10/16/18 19:32 Pulse Rate 67 10/16/18 19:32 Respiratory Rate 14 10/16/18 19:32 Blood Pressure 135/85 10/16/18 19:32 Pulse Oximetry 98 10/16/18 19:32 Course Orders Ordered: ED Orders 10/16/18 21:00 Comprehensive Metabolic Panel Stat Lipase Stat 10/16/18 21:05 Complete Blood Count AUTO DIFF Stat 10/16/18 21:44 US abdomen limited Stat Discontinued Medications Sodium Chloride (Normal Saline 0.9%) 1,000 mls @ 1,000 mls/hr IV BOLUS ONE Stop: 10/16/18 20:37 Last Infusion: 10/16/18 23:01 Dose: 0 mls/hr Admin: 10/16/18 21:27 Dose: 1,000 mls/hr Ketorolac Tromethamine (Toradol) 15 mg IV NOW ONE Stop: 10/16/18 19:39 Last Admin: 10/16/18 21:26 Dose: 15 mg Ondansetron HCl (Zofran) 4 mg IV NOW ONE Stop: 10/16/18 19:40 Last Admin: 10/16/18 21:26 Dose: 4 mg Pantoprazole Sodium (Protonix) 40 mg IV NOW ONE Stop: 10/16/18 19:39 Last Admin: 10/16/18 21:26 Dose: 40 mg Vital Signs - 8 hr 10/16/18 19:32 10/16/18 23:02 Temperature 97.0 F L Pulse Rate 67 78 Respiratory Rate 14 16 Blood Pressure 135/85 134/76 Pulse Oximetry 98 98 MDM - Weakness Lab Data Result diagrams: 10/16/18 21:05 10/16/18 21:00 Lab Results 10/16/18 10/16/18 Range/Units 21:00 21:05 WBC 6.0 (4.5-11.0) X10^3/uL RBC 5.26 H (4.0-5.2) X10^6/uL Hgb 14.3 (12.0-16.0) g/dL Hct 42.9 (36-46) % MCV 81.7 (80-100) fL MCH 27.3 (26-34) PG MCHC 33.4 (30-36) % RDW 13.9 (11.6-14.8) % Plt Count 234 (150-400) X10^3/uL Neut % (Auto) 58.7 (50-75) % Lymph % (Auto) 31.6 (25-40) % [place] % (Auto) 6.2 (3-14) % Eos % (Auto) 2.8 (2-4) % Baso % (Auto) 0.7 (0-2) % Neut # (Auto) 3500 (2443-7222) /uL Lymph # (Auto) 1900 (0506-6224) /uL [place] # (Auto) 400 (0-900) /uL Eos # (Auto) 200 (0-450) /uL Baso # (Auto) 0 (0-100) /uL Sodium 141 (137-145) mmol/L Potassium 4.0 (3.4-5.1) mmol/L Chloride 106 (98-107) mmol/L Carbon Dioxide 22 (22-32) mmol/L BUN 14 (7-17) mg/dL Creatinine 0.60 (0.52-1.04) mg/dL Estimated GFR > 60.0 (>60) mL/min BUN/Creatinine Ratio 23.3 H (6-22) Glucose 96 (70-100) mg/dL Calcium 8.8 (8.4-10.2) mg/dL Total Bilirubin 0.4 (0.2-1.3) mg/dL AST 38 H (14-36) IU/L ALT 54 H (9-52) IU/L Alkaline Phosphatase 61 (38-126) U/L Total Protein 7.7 (6.3-8.2) g/dL Albumin 4.5 (3.5-5.0) g/dL Globulin 3.2 (1.7-4.1) g/dL Albumin/Globulin Ratio 1.4 (1.0-2.8) Lipase 83 (23-300) U/L Point of Care Testing Test Results Negative Urine Dip Bedside Urine Glucose Negative Bedside Urine Bilirubin - Negative Bedside Urine Ketone - Negative Urine Specific [place] 1.025 Bedside Urine Occult Blood - Negative Bedside Urine pH 6.0 Bedside Urine Protein - Negative Bedside Urine Urobilinogen - Negative Bedside Urine Nitrite - Negative Bedside Urine Leukocytes +/- 15 Esterase Imaging Data US - abdomen: Radiologist's impression: Mild fatty infiltration of the liver Discharge Plan Departure Patient Disposition: Home Clinical Impression: Headache Qualifiers: Headache type: other headache syndrome Qualified Code(s): G44.89 - Other head ache syndrome Abdominal pain Qualifiers: Abdominal location: generalized Qualified Code(s): R10.84 - Generalized abdo barrett pain Discharge Date/Time: 10/16/18 23:03 Interventions: ED Discharge Assessment Last Done: 10/16/18 23:02 Instructions: DI for Dehydration -- Adult, DI for Headache Activity Restrictions/Additional Instructions: *You have been diagnosed with [acute on chronic abdominal pain, headache resolved] *What to do: *Take medications as directed *Follow up with your primary care provider in 2-3 days, call for an appointment. Let them know you were seen in the Emergency Department and that we ask that you be seen in follow up *Return to ER if you should have any new, worsening or concerning symptoms Prescriptions: New hyoscyamine sulfate 0.125 mg tablet 0.125 mg PO BID-QID PRN (Reason: dyspepsia) Qty: 10 RF: 0 ondansetron 4 mg tablet,disintegrating 4 mg PO Q6H PRN (Reason: nausea and vomiting) Qty: 10 RF: 0 Referrals: Lisa Shaffer MD [Primary Care Provider] -
== END 2018-10-16 23:03 | disposition home or self-care (01) ==
PROVIDERS: Emergency Provider Emergency Medicine; PCP Family Medicine
DX: G44.89 Other headache syndrome (principal); R10.84 Generalized abdominal pain
CPT/HCPCS: 36591; 76705; 80053; 81003; 81025; 83690; 85025; 96361; 96374; 96375; 99283; 99284; C9113; J1885; J2405

== ENCOUNTER 2018-12-27 09:03 | Emergency (ER) | payer OTHER, SELFPAY ==
[2018-12-27 09:25] VITALS: BP 115/75; PULSE 75; RESP 18; TEMP 36.8; O2SAT 100; BMI 37.5
--- NOTE | 2018-12-27 09:28 | DI.CT.S_ITS ---
PROCEDURE: CT ABDOMEN PELVIS W CON INDICATIONS: RLQ pain radiates to shoulder, egg retrieval Weds TECHNIQUE: After the administration of intravenous contrast, 5 mm thick sections acquired from the diaphragm to the symphysis. 5 mm coronal and sagittal reformats were acquired. For radiation dose reduction, the following was used: automated exposure control, adjustment of mA and/or kV according to patient size. COMPARISON: None. FINDINGS: Image quality: Excellent. ABDOMEN: Lung bases: Mild bibasilar atelectasis. Heart size is normal. Small hiatal hernia. Solid organs: Liver is normal in size and enhancement. Gallbladder is unremarkable. Biliary system is non dilated. Pancreas enhances normally. Spleen is normal in size and enhancement. No adrenal nodules. Kidneys demonstrate normal size and enhancement, without hydronephrosis. Peritoneum and bowel: Bowel loops demonstrate normal wall thickness and caliber. No free air is noted in the abdomen. There is a moderate amount of scattered free fluid seen throughout the abdomen and pelvis without rim enhancement or peritoneal thickening/enhancement. Fluid measures simple fluid attenuation throughout. Nodes and vessels: No retroperitoneal or mesenteric adenopathy by size criteria. Aorta and inferior vena cava are normal in size. Miscellaneous: No ventral hernias. Tiny fat containing umbilical hernia. PELVIS: Genitourinary: Bladder wall thickness is normal. There is marked enlargement of the bilateral ovaries secondary to numerous enlarged follicles. The right ovary measures approximately 6.7 x 7.3 x 9.0 cm. The left ovary measures approximately 8.5 x 11.7 x 9.7 cm. No significant inflammatory stranding surrounding the ovaries. The visualized ovarian veins appear appear patent and normal in caliber. The largest ovarian cyst versus follicle measures approximately 3.2 cm on the right and 4.5 cm on the left. The uterus is prominent in size and markedly heterogeneous with numerous ill-defined hypodensities most likely representing fibroids. Miscellaneous: No inguinal hernias or adenopathy. Bones: No suspicious bony lesions. No vertebral body compression fractures. IMPRESSION: 1. Markedly enlarged ovaries bilaterally with numerous enlarged bilateral ovarian cysts versus follicles measuring up to 3.2 cm on the right and 4.5 cm and the left. There is moderate free fluid scattered throughout the abdomen and pelvis possibly related to recent harvesting procedure. No significant inflammatory stranding surrounding the ovaries and normal appearing ovarian vasculature; however, ovarian torsion cannot be excluded. Ovarian enlargement with enlarged follicles and scattered ascites likely sequela of ovarian hyperstimulation syndrome. Recommend further evaluation with gynecologic consultation. 2. Small hiatal hernia. 3. Prominent uterine size with heterogeneous enhancement suggesting presence of numerous uterine fibroids. Findings were discussed with Dr. Helton of the emergency department at 1100 hrs [place] time. Dictated by: Lyle Neumann M.D. on 12/27/2018 at 9:48 Approved by: Lyle Neumann M.D. on 12/27/2018 at 10:07
--- NOTE | 2018-12-27 09:29 | ED.ABDPAIN ---
HPI - Abdominal Pain General Chief Complaint: Abdominal Pain Stated Complaint: Pain in ovaries after procedure on 12/23 Time Seen by Provider: 12/27/18 09:21 Source: patient and family () Mode of arrival: ambulatory Limitations: no limitations History of Present Illness HPI narrative: This is a 38-year-old female who comes to the emergency department with complaint of right lower abdominal pain that radiates up in towards her right shoulder. Patient states she had a retrieval on Friday, she had quite a bit of cramping and then pain in her abdomen afterwards. Over the last several days it has been worsening. She contacted her provider and they asked her to come down for evaluation but patient states she was too uncomfortable to make the drive to [place]. She has not had fevers she denies any nausea or vomiting she denies any back or flank pain. Patient states that it feels like something once to burst in her right lower quadrant. She has had some hesitancy with urination and dysuria. She denies any vaginal bleeding or discharge. She has had normal bowel movements she does have a history of PCOS. She has had a port placed recently in order to receive chemo for breast cancer. She states she was staged as a 2B and is scheduled for lumpectomy and had her first dose of chemo last week. She denies any other prior surgeries besides dental surgery. Denies any allergies to medications denies any tobacco, alcohol or illicit. Patient is company by her . Related Data Previous Rx's Medication Instructions Recorded hyoscyamine sulfate 0.125 mg PO BID-QID PRN #10 tab 10/16/18 ondansetron 4 mg PO Q6H PRN #10 tab 10/16/18 ketorolac 10 mg PO QID PRN #10 tab 12/27/18 Allergies Allergy/AdvReac Type Severity Reaction Status Date / Time No Known Drug Allergies Allergy Verified 10/16/18 19:36 Review of Systems Review of Systems ROS Unobtainable: All systems reviewed & are unremarkable except as noted in HPI and below Constitutional Constitutional: Denies chills, Denies fever(s), Denies lethargy and Denies weakness Cardiovascular Cardiovascular: Denies chest pain, Denies dyspnea and Denies dyspnea on exertion Respiratory Respiratory: Denies dyspnea and Denies dyspnea on exertion Gastrointestinal Gastrointestinal: Reports abdominal pain, Denies melena, Reports bloating, Denies hematochezia, Denies change in bowel habits, Denies diarrhea, Denies nausea and Denies vomiting Genitourinary Genitourinary: Reports as per HPI, Denies abnormal menses, Denies abnormal vaginal bleeding, Denies hematuria, Denies urinary frequency, Reports dysuria, Denies flank pain, Denies urinary incontinence, Reports urinary hesitancy, Denies urinary urgency and Denies vaginal discharge Musculoskeletal Musculoskeletal: Denies back pain Integumentary/Breasts Skin/Breast: Denies rash Neurologic Neurologic: Denies weakness [facility] Medical History (Updated 12/27/18 @ 15:51 by Rachel Helton DO) Breast cancer (Acute) History of PCOS (Acute) Port-A-Cath in place (Acute) Social History (Updated 12/27/18 @ 09:33 by Rachel Helotn DO) marital status: Smoking Status: Never smoker alcohol intake: never substance use type: does not use Social History (Updated 12/27/18 @ 09:33 by Rachel Helton DO) marital status: Smoking Status: Never smoker alcohol intake: never substance use type: does not use Exam Narrative Exam Narrative: GENERAL: Alert and oriented x three, obese, well-appearing female in moderate distress. HEENT: Head normocephalic, atraumatic, EOMI, pupils reactive, face symmetric, moist mucous membranes NECK: Supple, full range of motion CARDIOVASCULAR: Regular rate and rhythm without murmurs, rubs or gallops. RESPIRATORY: Breath sounds equal bilaterally, no wheezes rales or rhonchi. ABDOMEN: Soft, right lower quadrant tenderness. Normoactive bowel sounds all 4 quadrants. No guarding or rebound, rigidity, no mass, no hernia noted. : No CVA tenderness EXTREMITIES: Normal range of motion, no clubbing or edema. Neurovascularly intact NEUROLOGICAL: Cranial nerves II through XII grossly intact. Moving all extremities SKIN: Warm, dry, no petechiae, no rashes or lesions. Initial Vital Signs Initial Vital Signs: Vital Signs Temperature 98.2 F 12/27/18 09:25 Pulse Rate 75 12/27/18 09:25 Respiratory Rate 18 12/27/18 09:25 Blood Pressure 115/75 12/27/18 09:25 Pulse Oximetry 100 12/27/18 09:25 Course Orders Ordered: ED Orders 12/27/18 09:56 Complete Blood Count AUTO DIFF Stat Comprehensive Metabolic Panel Stat Lactate (Lactic Acid) Stat Lipase Stat Procalcitonin Stat 12/27/18 10:49 Blood Culture Stat 12/27/18 11:53 US pelvic complete Stat 12/27/18 12:00 Urine Culture Stat Urine Microscopic Stat Discontinued Medications Diazepam (Valium) 5 mg PO NOW ONE Stop: 12/27/18 11:38 Last Admin: 12/27/18 11:53 Dose: Not Given Documented by: RICKY Sodium Chloride (Normal Saline 0.9%) 1,000 mls @ 1,000 mls/hr IV BOLUS ONE Stop: 12/27/18 10:27 Last Infusion: 12/27/18 11:52 Dose: 0 mls/hr Documented by: Admin: 12/27/18 09:40 Dose: 1,000 mls/hr Documented by: KARINA Sodium Chloride (Normal Saline 0.9%) 1,000 mls @ 1,000 mls/hr IV BOLUS ONE Stop: 12/27/18 12:34 Last Admin: 12/27/18 11:53 Dose: Not Given Documented by: RICKY Ketorolac Tromethamine (Toradol) 30 mg IV NOW ONE Stop: 12/27/18 09:29 Last Admin: 12/27/18 09:40 Dose: 30 mg Documented by: KARINA Vital Signs Vital signs: Vital Signs - 8 hr 12/27/18 11:42 12/27/18 13:42 12/27/18 15:06 Pulse Rate 62 66 66 Respiratory Rate 18 18 18 Blood Pressure [Right Arm] 114/60 110/47 L 119/70 Pulse Oximetry 100 97 99 MDM - Abdominal Pain Lab Data Result diagrams: 12/27/18 09:56 12/27/18 09:56 Labs: Lab Results 12/27/18 12/27/18 12/27/18 Range/Units 09:56 09:56 09:56 WBC 20.9 H (4.5-11.0) X10^3/uL RBC 5.11 (4.0-5.2) X10^6/uL Hgb 13.8 (12.0-16.0) g/dL Hct 41.8 (36-46) % MCV 81.9 (80-100) fL MCH 27.1 (26-34) PG MCHC 33.1 (30-36) % RDW 13.7 (11.6-14.8) % Plt Count 276 (150-400) X10^3/uL Neut % (Auto) Not Reportable Lymph % (Auto) Not Reportable [place] % (Auto) Not Reportable Eos % (Auto) Not Reportable Baso % (Auto) Not Reportable Lymph # (Auto) Not Reportable [place] # (Auto) Not Reportable Baso # (Auto) Not Reportable Total Counted 100 Seg Neutrophils % 77.0 H (38-70) % Band Neutrophils % 5.0 (3-7) % Lymphocytes % (Manual) 11.0 L (25-45) % Monocytes % (Manual) 7.0 (2-11) % Neutrophils # (Manual) 11878 H (0835-7344) /uL RBC Morphology Normal morphology Sodium 140 (137-145) mmol/L Potassium 3.7 (3.4-5.1) mmol/L Chloride 106 (98-107) mmol/L Carbon Dioxide 22 (22-32) mmol/L BUN 19 H (7-17) mg/dL Creatinine 1.00 (0.52-1.04) mg/dL Estimated GFR > 60.0 (>60) mL/min BUN/Creatinine Ratio 19.0 (6-22) Glucose 87 (70-100) mg/dL Lactate 1.4 (0.7-2.1) mmol/L Calcium 8.7 (8.4-10.2) mg/dL Total Bilirubin 0.7 (0.2-1.3) mg/dL AST 22 (14-36) IU/L ALT 24 (9-52) IU/L Alkaline Phosphatase 47 (38-126) U/L Total Protein 6.6 (6.3-8.2) g/dL Albumin 3.8 (3.5-5.0) g/dL Globulin 2.8 (1.7-4.1) g/dL Albumin/Globulin Ratio 1.4 (1.0-2.8) Lipase 40 (23-300) U/L Procalcitonin (<0.5) ng/mL Urine RBC (0-5/HPF) Urine WBC (0-5/HPF) Ur Squamous Epith Cells (0-5/HPF) Urine Bacteria (None) Ur Culture Indicated? 12/27/18 12/27/18 Range/Units 09:56 12:00 WBC (4.5-11.0) X10^3/uL RBC (4.0-5.2) X10^6/uL Hgb (12.0-16.0) g/dL Hct (36-46) % MCV (80-100) fL MCH (26-34) PG MCHC (30-36) % RDW (11.6-14.8) % Plt Count (150-400) X10^3/uL Neut % (Auto) Lymph % (Auto) [place] % (Auto) Eos % (Auto) Baso % (Auto) Lymph # (Auto) [place] # (Auto) Baso # (Auto) Total Counted Seg Neutrophils % (38-70) % Band Neutrophils % (3-7) % Lymphocytes % (Manual) (25-45) % Monocytes % (Manual) (2-11) % Neutrophils # (Manual) (5526-1313) /uL RBC Morphology Sodium (137-145) mmol/L Potassium (3.4-5.1) mmol/L Chloride (98-107) mmol/L Carbon Dioxide (22-32) mmol/L BUN (7-17) mg/dL Creatinine (0.52-1.04) mg/dL Estimated GFR (>60) mL/min BUN/Creatinine Ratio (6-22) Glucose (70-100) mg/dL Lactate (0.7-2.1) mmol/L Calcium (8.4-10.2) mg/dL Total Bilirubin (0.2-1.3) mg/dL AST (14-36) IU/L ALT (9-52) IU/L Alkaline Phosphatase (38-126) U/L Total Protein (6.3-8.2) g/dL Albumin (3.5-5.0) g/dL Globulin (1.7-4.1) g/dL Albumin/Globulin Ratio (1.0-2.8) Lipase (23-300) U/L Procalcitonin < 0.05 (<0.5) ng/mL Urine RBC 0-1/hpf (0-5/HPF) Urine WBC 10-30/hpf H (0-5/HPF) Ur Squamous Epith Cells 1-5 /hpf (0-5/HPF) Urine Bacteria Few (2-10) H (None) Ur Culture Indicated? Specimen cultured Point of care testing: Urine Dip Bedside Urine Glucose Negative Bedside Urine Bilirubin - Negative Bedside Urine Ketone - Negative Urine Specific [place] 1.010 Bedside Urine Occult Blood +/- Bedside Urine pH 6.0 Bedside Urine Protein + 30 Bedside Urine Urobilinogen - Negative Bedside Urine Nitrite - Negative Bedside Urine Leukocytes ++ 125 Esterase MDM Narrative Medical decision making narrative: Patient with recent egg retrieval complaining of increasing abdominal pain that is now radiating to her shoulder as concerning for possible pneumoperitoneum. Discussed with patient I would like to do CT imaging to evaluate. She defers any narcotic pain medications and we will try Toradol. Patient states she is being seen at [facility] and had the procedure at [facility]. Dr. Neumann did the egg retrieval. Imaging shows enlarged ovaries, free fluid in the abdomen. Patient has WBC of 20, afebrile with elevated neuts, negative procalcitonin. Discussed findings with Dr. Prince who requests US to eval for hematoma, fluid in abdomen. Discussed US results, no signs of acute torsion currently, patient is more comfortable at this time. Dr. Prince recommends daily weights, they will follow with the patient daily, monitor urine for dehydration and to return if any worsening symptoms. Discussed with patient, also discussed risk of torsion with enlarged ovaries and s/s to watch for and reasons to return. Discharge Plan Departure Patient Disposition: Home Clinical Impression: Ovarian hyperstimulation syndrome Discharge Date/Time: 12/27/18 16:04 Activity Restrictions/Additional Instructions: Call tomorrow to follow up with your reproductive endocrinology team. I spoke with Dr. Prince today, they will be following with you daily to make sure that your continuing to improve. Call tomorrow if you have not heard from the clinic by noon. Continue to track your weight daily. Track your urine, if it is dark increase your fluid intake as this suggest you are dehydrated, if it is light and you are having frequent urination this is optimum. You may take Tylenol up to 1000mg every 8 hours as needed for pain. You may also take ketorolac every 6 hours as needed, to not take this medication for more than 5 days in a row. You may discuss the ketorolac with your oncologist to verify that it is safe for you to take. Return to the emergency department for fevers greater than 100.4 F, rapidly worsening pain, persistent vomiting, pain that is rapidly worsening improving and then worsening, decreased or no urine output, lightheadedness passing out, chest pain or shortness of breath. Prescriptions: New ketorolac 10 mg tablet 10 mg PO QID PRN (Reason: pain) Qty: 10 RF: 0 No Action hyoscyamine sulfate 0.125 mg tablet 0.125 mg PO BID-QID PRN (Reason: dyspepsia) Qty: 10 RF: 0 ondansetron 4 mg tablet,disintegrating 4 mg PO Q6H PRN (Reason: nausea and vomiting) Qty: 10 RF: 0 Referrals: Lisa Shaffer MD [Primary Care Provider] -
[2018-12-27] MEDS: SODIUM CHLORIDE 0.9% 1,000 ML 1000 ML IV (09:40)
[2018-12-27] MEDS: KETOROLAC 60 MG/2 ML VIAL 30 MG IV (09:40)
[2018-12-27 10:07] LABS: Add Manual Diff / Slide Review YES; Hematocrit 41.8 % (36-46); Hemoglobin 13.8 g/dL (12.0-16.0); Mean Corpuscular HGB Conc 33.1 % (30-36); Mean Corpuscular Hemoglobin 27.1 PG (26-34); Mean Corpuscular Volume 81.9 fL (80-100); Platelet Count 276 X10^3/uL (150-400); Red Blood Cell Count 5.11 X10^6/uL (4.0-5.2); Red Cell Distribution Width 13.7 % (11.6-14.8); White Blood Cell Count 20.9 X10^3/uL (4.5-11.0)
[2018-12-27 10:17] LABS: Alanine Aminotransferase 24 IU/L (9-52); Albumin 3.8 g/dL (3.5-5.0); Albumin Globulin Ratio 1.4 (1.0-2.8); Alkaline Phosphatase 47 U/L (38-126); Aspartate Aminotransferase 22 IU/L (14-36); Bilirubin Total 0.7 mg/dL (0.2-1.3); Blood Urea Nitrogen 19 mg/dL (7-17); Calcium 8.7 mg/dL (8.4-10.2); Carbon Dioxide 22 mmol/L (22-32); Chloride 106 mmol/L (98-107); Estimated Glomerular Filt Rate > 60.0 mL/min (>60); Globulin 2.8 g/dL (1.7-4.1); Glucose 87 mg/dL (70-100); HEMOLYSIS < 15 (0-50); Lactate (Lactic Acid) 1.4 mmol/L (0.7-2.1); Lipase 40 U/L (23-300); Potassium 3.7 mmol/L (3.4-5.1); Sodium 140 mmol/L (137-145); Total Protein 6.6 g/dL (6.3-8.2)
[2018-12-27 10:21] LABS: Neutrophils Absolute Manual 17138 /uL (3000-5900); RBC Morphology Normal Morphology; Total Cells Counted 100
[2018-12-27 11:16] LABS: Procalcitonin < 0.05 ng/mL (<0.5)
--- NOTE | 2018-12-27 11:18 | PC.NURSE ---
Pt arrived ambulatory, AAOx3. C/O RLQ pain rad to R shoulder. Had procedure earlier in week to harvest eggs. Pt newly dx with S2 breast CA and had first chemo on 12/25. Port implanted. obtained order to access by Dr Helton. accessed per protocol. labs drawn including BC x 2 and lactate. Urine obtained and sent. medicated with torodol which pt reports improved pain. most pain is when walking. IVF infusing. Pt sent to CT. Awaiting call back from [facility] [employer] . NAD at this time
[2018-12-27 11:42] VITALS: BP 114/60; PULSE 62; RESP 18; O2SAT 100
--- NOTE | 2018-12-27 11:53 | DI.US.S_ITS ---
PROCEDURE: US PELVIC COMPLETE INDICATIONS: EGG RETRIEVAL 4 DAYS AGO; SEVERE PAIN TECHNIQUE: Real-time scanning was performed of the pelvic organs, with image documentation. Additional endovaginal scanning was necessary due to incomplete visualization of the adnexal and endometrial structures by transabdominal scanning. COMPARISON: CT abdomen and pelvis from earlier same day. FINDINGS: Transabdominal scanning: Limited scanning through the kidneys shows no hydronephrosis. There is free fluid noted in the anterior cul-de-sac and right upper quadrant. Endovaginal scanning: Uterus: Uterus is enlarged in size at 10.3 x 6.5 cm. The endometrium measures 11 mm in combined thickness. There is a 5.0 x 3.3 x 4.7 cm intramural fibroid seen in the right, anterior uterus. There is also a 2.6 x 2.7 x 2.2 cm intramural fibroid noted adjacent to it. Ovaries: As noted on CT, both ovaries are enlarged in size measuring 9.0 x 6.4 x 6.1 cm on the right and 9.6 x 8.6 x 8.5 cm on the left. Numerous bilateral ovarian cysts/follicles are visualized with the largest on the right measuring 3.4 cm and the largest on the left measuring 5.7 cm. No evidence for ovarian hematomas although some of the cysts/follicles are mildly complicated in appearance. There are normal vascular waveforms identified in the bilateral ovaries. IMPRESSION: Enlarged bilateral ovaries with numerous enlarged follicles/cysts as well as scattered ascites compatible with ovarian hyperstimulation syndrome. There is presence of normal vascular waveforms within the bilateral ovaries. No evidence for ovarian torsion at this time although the patient is at high risk for torsion given the size of her ovaries. Recommend continued clinical surveillance and followup with reproductive endocrinology/gynecology. Dictated by: Lyle Neumann M.D. on 12/27/2018 at 13:46 Approved by: Lyle Neumann M.D. on 12/27/2018 at 14:30
[2018-12-27 13:26] LABS: RBC Urine 0-1/HPF (0-5/HPF); WBC Urine 10-30/HPF (0-5/HPF)
[2018-12-27 13:27] LABS: Bacteria Urine Few (2-10); Culture Indicated Urine Specimen Cultured; Squamous Epithelial Cell Urine 1-5 /HPF (0-5/HPF)
[2018-12-27 13:42] VITALS: BP 110/47; PULSE 66; RESP 18; O2SAT 97
[2018-12-27 15:06] VITALS: BP 119/70; PULSE 66; RESP 18; O2SAT 99
== END 2018-12-27 16:04 | disposition home or self-care (01) ==
PROVIDERS: Emergency Provider Emergency Medicine; PCP Family Medicine; Referring Provider Obstetrics & Gynecology Reproductive Endocrinology
DX: N98.1 Hyperstimulation of ovaries (principal)
CPT/HCPCS: 36591; 74177; 76830; 76856; 80053; 81003; 81015; 83605; 83690; 84145; 85025; 87040; 87077; 87086; 87147; 96374; 99283; 99285; J1642; J1885; Q9967

== ENCOUNTER 2019-03-02 18:35 | Emergency (ER) | payer OTHER, SELFPAY ==
[2019-03-02 18:40] VITALS: BP 143/78; PULSE 90; RESP 18; TEMP 36.2; O2SAT 99; BMI 35.6
--- NOTE | 2019-03-02 18:44 | DI.RAD.S_ITS ---
PROCEDURE: XR CHEST 1V INDICATIONS: chest pain TECHNIQUE: One view of the chest was acquired. COMPARISON: None. FINDINGS: Surgical changes and devices: Port-A-Cath in normal position from right sided approach. Lungs and pleura: Lungs are clear. No pleural effusions or pneumothorax. Mediastinum: Mediastinal contours appear normal. Heart size is normal. Bones and chest wall: No suspicious bony lesions. Overlying soft tissues appear unremarkable. IMPRESSION: Source of chest pain not seen, Port-A-Cath positioning normal. Dictated by: Ritesh Seaman M.D. on 03/02/2019 at 19:17 Approved by: Ritesh Seaman M.D. on 03/02/2019 at 19:18
--- NOTE | 2019-03-02 18:47 | PC.NURSE ---
Pt arrives POV with . On chemo for Breast CA. Last chemo 5 days ago. Reports since yesterday intermittently feeling palpitations and noticing that her HR increases to 108-110 on her Apple Watch. Denies CP. reports feeling winded although that is a usual occurrence with her chemo treatment. Reports that when receiving chemo they give her a steroid and she usually has palpitations after administration but concerned since it has been 5 days since her last steroid dose. AAOx3, ambulatory, Lungs clear, NSR 96, placed on cardiac monitoring, SPO2 100% RA. IV placed and labs drawn per protocol. EKG obtained and Dr Bolden at bedside. awaiting further orders.
[2019-03-02 18:49] LABS: Add Manual Diff / Slide Review NO; Basophils Absolute Auto 0 /uL (0-100); Basophils Percent Auto 0.5 % (0-2); Eosinophils Absolute Auto 100 /uL (0-450); Eosinophils Percent Auto 2.5 % (2-4); Hematocrit 32.3 % (36-46); Hemoglobin 11.2 g/dL (12.0-16.0); Lymphocytes Absolute Auto 500 /uL (1100-4500); Lymphocytes Percent Auto 13.1 % (25-40); Mean Corpuscular HGB Conc 34.5 % (30-36); Mean Corpuscular Hemoglobin 29.6 PG (26-34); Mean Corpuscular Volume 85.7 fL (80-100); Monocytes Absolute Auto 200 /uL (0-900); Monocytes Percent Auto 5.9 % (3-14); Neutrophils Absolute Auto 3000 /uL (1500-7000); Platelet Count 277 X10^3/uL (150-400); Red Blood Cell Count 3.77 X10^6/uL (4.0-5.2); Red Cell Distribution Width 19.4 % (11.6-14.8); White Blood Cell Count 3.8 X10^3/uL (4.5-11.0)
--- NOTE | 2019-03-02 18:51 | ED.CHESTPAIN ---
HPI - Chest Pain General Chief Complaint: Chest Pain Stated Complaint: HEART PALPITATIONS Time Seen by Provider: 03/02/19 18:40 Source: patient Mode of arrival: Ambulatory Limitations: no limitations History of Present Illness HPI narrative: 38-year-old female nonsmoker With history of breast cancer on chemotherapy presents with her and a chief complaint of more significant palpitations than she is used to. She states that since she has switched her chemotherapy drugs she has become accustomed to palpitations but they usually fade more quickly than this. She states they have cleared prior to her arrival. She denies any chest pain. She is not dizzy nor weak or lightheaded. She denies any fever or chills. She denies any vomiting or diarrhea. She denies any significant caffeine, nicotine or alcohol MD complaint: chest pain Onset (ago): hour(s) Duration: improved Onset: during rest Relieving factors: nothing Exacerbating factors: nothing Treatments prior to arrival chest pain: none Related Data Previous Rx's Medication Instructions Recorded hyoscyamine sulfate 0.125 mg PO BID-QID PRN #10 tab 10/16/18 ondansetron 4 mg PO Q6H PRN #10 tab 10/16/18 ketorolac 10 mg PO QID PRN #10 tab 12/27/18 Allergies Allergy/AdvReac Type Severity Reaction Status Date / Time No Known Drug Allergies Allergy Verified 10/16/18 19:36 Review of Systems Constitutional Constitutional: Denies chills, Denies fatigue, Denies fever(s), Denies frequent falls, Denies lethargy and Denies weakness Eyes Eyes: Denies change in vision, Denies eye discharge, Denies irritation and Denies loss of vision ENT Ears, Nose, Mouth, and Throat: Denies change in voice, Denies dizziness, Denies neck pain, Denies sore throat and Denies throat swelling Cardiovascular Cardiovascular: Denies chest pain, Denies irregular heart rhythm, Denies lightheadedness, Reports palpitations, Denies dyspnea, Denies dyspnea on exertion and Denies orthopnea Respiratory Respiratory: Denies cough, Denies dyspnea, Denies dyspnea on exertion and Denies wheezing Gastrointestinal Gastrointestinal: Denies abdominal pain, Denies change in bowel habits, Denies diarrhea, Denies nausea and Denies vomiting Genitourinary Genitourinary: Denies hematuria, Denies flank pain, Denies urinary incontinence and Denies urinary urgency Musculoskeletal Musculoskeletal: Denies back pain, Denies muscle weakness, Denies neck pain, Denies numbness and Denies tingling Integumentary/Breasts Skin/Breast: Denies pruritus, Denies erythema, Denies rash and Denies wounds Neurologic Neurologic: Denies behavioral changes, Denies confusion, Denies dizziness, Denies frequent falls, Denies loss of vision, Denies numbness, Denies tingling and Denies weakness Psychiatric Psychiatric: Denies anxiety, Denies behavioral changes, Denies confusion, Denies depression, Denies homicidal ideation and Denies suicidal ideation Endocrine Endocrine: Denies fatigue, Denies flushing and Reports palpitations Hematologic/Lymphatic Hematologic/Lymphatic: Denies easy bruising Allergic/Immunologic Allergic/Immunologic: Denies urticaria, Denies throat swelling and Denies wheezing Patient History Medical History Breast cancer (Acute) History of PCOS (Acute) Port-A-Cath in place (Acute) Social History marital status: Smoking Status: Never smoker alcohol intake: never substance use type: does not use alcohol intake frequency: 0-2 drinks per day Substance Use Type: does not use Exam Narrative Exam Narrative: GENERAL: [38] year old patient appears stated age. Well-nourished, well-developed patient, in mild distress. HEAD: Atraumatic. Normocephalic. EYES: Pupils equal round and reactive. Extraocular motions intact. No scleral icterus. No injection or drainage. ENT: Nose without bleeding, purulent drainage. Throat without erythema, tonsillar hypertrophy or exudate. Airway patent. NECK: Trachea midline. Non tender CARDIOVASCULAR: Regular rate and rhythm without murmurs, gallops, or rubs. RESPIRATORY: Clear to auscultation. Breath sounds equal bilaterally. No wheezes, rales, or rhonchi. GASTROINTESTINAL: Abdomen soft, non-tender, nondistended. EXTREMITIES: No edema or joint tenderness. BACK: Nontender without deformity or crepitance. No flank tenderness. NEURO: AOx3. SKIN: No rash or erythema of visible areas Initial Vital Signs Initial Vital Signs: Vital Signs Temperature 97.2 F L 03/02/19 18:40 Pulse Rate 90 11/19/19 18:40 Respiratory Rate 18 03/02/19 18:40 Blood Pressure 143/78 H 03/02/19 18:40 Pulse Oximetry 99 03/02/19 18:40 Course Orders Ordered: ED Orders 03/02/19 18:42 Complete Blood Count AUTO DIFF Stat Comprehensive Metabolic Panel Stat Lipase Stat Partial Thromboplastin Time Stat Prothrombin Time INR Stat Troponin & CK Cardiac Panel Stat EKG-12 Lead Stat 03/02/19 18:44 XR chest 1V Stat Vital Signs Vital signs: Vital Signs - 8 hr 03/02/19 18:40 03/02/19 19:41 03/02/19 20:03 Temperature 97.2 F L Pulse Rate 90 91 H 87 Respiratory Rate 18 20 16 Blood Pressure 143/78 H 125/85 Blood Pressure [Right Arm] 143/76 H Pulse Oximetry 99 98 97 MDM - Chest Pain Lab Data Result diagrams: 03/02/19 18:42 03/02/19 18:42 Labs: Lab Results 03/02/19 03/02/19 03/02/19 Range/Units 18:42 18:42 18:42 WBC 3.8 L (4.5-11.0) X10^3/uL RBC 3.77 L (4.0-5.2) X10^6/uL Hgb 11.2 L (12.0-16.0) g/dL Hct 32.3 L (36-46) % MCV 85.7 (80-100) fL MCH 29.6 (26-34) PG MCHC 34.5 (30-36) % RDW 19.4 H (11.6-14.8) % Plt Count 277 (150-400) X10^3/uL Neut % (Auto) 78.0 H (50-75) % Lymph % (Auto) 13.1 L (25-40) % Hardee % (Auto) 5.9 (3-14) % Eos % (Auto) 2.5 (2-4) % Baso % (Auto) 0.5 (0-2) % Neut # (Auto) 3000 (3130-4193) /uL Lymph # (Auto) 500 L (2520-4403) /uL Hardee # (Auto) 200 (0-900) /uL Eos # (Auto) 100 (0-450) /uL Baso # (Auto) 0 (0-100) /uL PT 10.3 (10.1-12.7) SECONDS INR 0.9 (0.9-1.3) APTT 33 (26.4-36.2) SECONDS Sodium 138 (137-145) mmol/L Potassium 4.1 (3.4-5.1) mmol/L Chloride 103 (98-107) mmol/L Carbon Dioxide 27 (22-32) mmol/L BUN 8 (7-17) mg/dL Creatinine 0.70 (0.52-1.04) mg/dL Estimated GFR > 60.0 (>60) mL/min BUN/Creatinine Ratio 11.4 (6-22) Glucose 192 H (70-100) mg/dL Calcium 9.4 (8.4-10.2) mg/dL Total Bilirubin 0.5 (0.2-1.3) mg/dL AST 38 H (14-36) IU/L ALT 58 H (<35) IU/L Alkaline Phosphatase 48 (38-126) U/L Total Creatine Kinase 44 (30-135) U/L CK-MB (CK-2) TNP CK-MB (CK-2) Rel Index TNP Troponin I < 0.012 (0.01-0.034) ng/mL Total Protein 7.2 (6.3-8.2) g/dL Albumin 4.6 (3.5-5.0) g/dL Globulin 2.6 (1.7-4.1) g/dL Albumin/Globulin Ratio 1.8 (1.0-2.8) Lipase 152 (23-300) U/L Imaging Data Chest x-ray: Radiologist's impression: [address] [id number] XRay Report Signed Patient: Maria E Arauz [facility]#: [id number] : 1980Acct:[id number] Age/Sex: 38 / FDate of Service: 03/02/19 Loc: ED Accession Number: [id number] Procedure: XR chest 1V Ordering Provider: Surya Bolden D.O. PROCEDURE: XR CHEST 1V INDICATIONS: chest pain TECHNIQUE: One view of the chest was acquired. COMPARISON: None. FINDINGS: Surgical changes and devices: Port-A-Cath in normal position from right sided approach. Lungs and pleura: Lungs are clear. No pleural effusions or pneumothorax. Mediastinum: Mediastinal contours appear normal. Heart size is normal. Bones and chest wall: No suspicious bony lesions. Overlying soft tissues appear unremarkable. IMPRESSION: Source of chest pain not seen, Port-A-Cath positioning normal. Dictated by: Ritesh Seaman M.D. on 03/02/2019 at 19:17 Approved by: Ritesh Seaman M.D. on 03/02/2019 at 19:18 [facility] Narrative Medical decision making narrative: Multiple etiologies for patient's symptoms considered including: [Dehydration versus sinus arrhythmia versus electrolyte abnormality versus other] Patient's symptoms improved or duration of stay with above-stated therapies. Findings and discharge diagnosis discussed with patient/family followed by verbalization of understanding Return precautions discussed with patient/family whom verbalize understanding. Discharge Plan Departure Patient Disposition: Home Clinical Impression: Heart palpitations Discharge Date/Time: 03/02/19 20:03 Instructions: DI for Palpitations Activity Restrictions/Additional Instructions: *You have been diagnosed with [palpitations ] *What to do: *Take medications as directed *Follow up with your primary care provider in 2-3 days, call for an appointment. Let them know you were seen in the Emergency Department and that we ask that you be seen in follow up *Return to ER if you should have any new, worsening or concerning symptoms Prescriptions: No Action hyoscyamine sulfate 0.125 mg tablet 0.125 mg PO BID-QID PRN (Reason: dyspepsia) Qty: 10 RF: 0 ondansetron 4 mg tablet,disintegrating 4 mg PO Q6H PRN (Reason: nausea and vomiting) Qty: 10 RF: 0 ketorolac 10 mg tablet 10 mg PO QID PRN (Reason: pain) Qty: 10 RF: 0 Referrals: Lisa Shaffer MD [Primary Care Provider] -
[2019-03-02 18:55] LABS: INR 0.9 (0.9-1.3); Prothrombin Time 10.3 SECONDS (10.1-12.7)
[2019-03-02 18:58] LABS: PTT Partial Thromboplastin Tim 33 SECONDS (26.4-36.2)
[2019-03-02 19:00] LABS: Alanine Aminotransferase 58 IU/L (<35); Albumin 4.6 g/dL (3.5-5.0); Albumin Globulin Ratio 1.8 (1.0-2.8); Alkaline Phosphatase 48 U/L (38-126); Aspartate Aminotransferase 38 IU/L (14-36); BUN Creatinine Ratio 11.4 (6-22); Bilirubin Total 0.5 mg/dL (0.2-1.3); Blood Urea Nitrogen 8 mg/dL (7-17); Calcium 9.4 mg/dL (8.4-10.2); Carbon Dioxide 27 mmol/L (22-32); Chloride 103 mmol/L (98-107); Creatine Kinase 44 U/L (30-135); Estimated Glomerular Filt Rate > 60.0 mL/min (>60); Globulin 2.6 g/dL (1.7-4.1); Glucose 192 mg/dL (70-100); HEMOLYSIS < 15 (0-50); Lipase 152 U/L (23-300); Potassium 4.1 mmol/L (3.4-5.1); Sodium 138 mmol/L (137-145); Total Protein 7.2 g/dL (6.3-8.2)
[2019-03-02 19:11] LABS: Troponin I < 0.012 ng/mL (0.01-0.034)
[2019-03-02 19:41] VITALS: BP 143/76; PULSE 91; RESP 20; O2SAT 98
[2019-03-02 20:03] VITALS: BP 125/85; PULSE 87; RESP 16; O2SAT 97
== END 2019-03-02 20:03 | disposition home or self-care (01) ==
PROVIDERS: Emergency Provider Emergency Medicine; PCP Family Medicine
DX: R00.2 Palpitations (principal); C50.919 Malignant neoplasm of unspecified site of unspecified female breast
CPT/HCPCS: 36415; 71045; 80053; 82550; 83690; 84484; 85025; 85610; 85730; 93005; 99282; 99285

== ENCOUNTER 2019-04-03 11:13 | Emergency (ER) | payer OTHER, SELFPAY ==
[2019-04-03 11:17] VITALS: BP 112/71; PULSE 80; RESP 18; TEMP 36.6; O2SAT 99
[2019-04-03] MEDS: PROPARACAINE 0.5% OPHTH SOL 2 DROPS EYE-RIGHT (12:55)
[2019-04-03] MEDS: FLUORESCEIN 1 MG STRIP EYE-RIGHT (12:56)
--- NOTE | 2019-04-03 13:03 | ED.EYEPROB ---
HPI - Eye Problem <Alejandro CansaPATRICK varmaP - Last Filed: 04/03/19 18:59> General Chief complaint: Eye Problems Stated complaint: something in eye/poss infection/chemo patient Time Seen by Provider: 04/03/19 11:25 Source: patient Mode of arrival: Ambulatory Limitations: no limitations History of Present Illness HPI Narrative: This is a 38-year-old female, nonsmoker, who presents to ED with watery eye on right side for last couple of days. Patient denies vision changes or blurred vision, eye discharge, foreign body sensation, redness or eye pain but states feels irritated and feels like a film over the eyeball. Patient denies fever, chills, nausea or vomiting, URI symptoms, known exposure to similar symptoms by others. Patient reports mild redness to affected eye and she has been rubbing and wiping her excessive tears away. Patient denies seen problem on left side of the eye. Patient states she is concerned for infection since she is currently on chemotherapy with Taxol for breast cancer and she is on 7th cycle at this time. She receives the cancer treatment at [facility] by Dr. Garcia. Patient reports she is currently taking Claritin for bone pain and not for allergies which was prescribed by oncologist and her spouse agrees with this information. Patient does not wear glasses or contact lenses. Related Data Previous Rx's Medication Instructions Recorded hyoscyamine sulfate 0.125 mg PO BID-QID PRN #10 tab 10/16/18 ondansetron 4 mg PO Q6H PRN #10 tab 10/16/18 ketorolac 10 mg PO QID PRN #10 tab 12/27/18 Allergies Allergy/AdvReac Type Severity Reaction Status Date / Time No Known Drug Allergies Allergy Verified 04/03/19 11:21 Review of Systems <Alejandro LizzELVA - Last Filed: 04/03/19 18:59> Review of Systems Narrative: General: Denies fever, chills, fatigue, malaise, sweats. HEENT: See HPI Respiratory: Denies dyspnea, cough, wheezing, hemoptysis, sputum. Cardiovascular: Denies chest pain, palpitations, orthopnea, edema. Gastrointestinal: Denies nausea, vomiting, abdominal pain, diarrhea, constipation, melena. : Denies dysuria, frequency, incontinence, hematuria, urinary retention. Musculoskeletal: Denies weakness, joint pain or bony pain. Skin: Denies rash, skin lesions, or other. Neurologic: Denies weakness, headache, numbness, change in speech, confusion, seizures, incoordination. Psychiatric: No concerning psychosocial issues. 12-point review of systems is negative except for those stated above. Patient History <ELVA Sy - Last Filed: 04/03/19 18:59> Medical History Breast cancer (Acute) History of PCOS (Acute) Port-A-Cath in place (Acute) Social History marital status: Smoking Status: Never smoker alcohol intake: never substance use type: does not use Smoking Status: Never smoker alcohol intake frequency: 0-2 drinks per day Substance Use Type: does not use Exam <ELVA Sy - Last Filed: 04/03/19 18:59> Narrative Exam Narrative: General appearance: well developed, well nourished, in no acute distress. Head: normocephalic, atraumatic, no scalp lesions, non-tender, alopecia. ENT: Left-sided auditory canals and tympanic membranes clear. Right auditory canal obscured with cerumen. Hearing grossly intact. Nose without bleeding, purulent discharge, septal hematoma or deviation. Turbinate with moderate erythema or swelling in L nares. Facial sinuses nontender to palpate. Mucous membrane moist, no mucosal lesion. Throat without erythema, tonsillar hypertrophy or exudate. Uvula in midline, airway patent. Visural acuity OD 20/40, OS 20/25 uncorrected. No fluorescein update on under the Wood's lamp. IOP was 17. +red light reflex and EOMI. Very mild injection on R conjunctiva w/o discharge. No obvious foreign body appreciated under the lids. Neck/Thyroid: neck supple, full range of motion, no visible masses or meningeal signs. No JVD, non-tender without lymphadenopathy. Skin: no suspicious rashes, lesions over visible areas. Warm and dry and appropriate color for ethnicity. Heart: no clubbing, no cyanosis, no edema. S1 and S2 normal. RRR w/o murmurs, clicks, or bruits. Lungs: Breathing even and unlabored. No stridor. No accessory muscles used. Able to speak in full sentences. Chest: normal shape and expansion. Abdomen: non-obese, non-distended. Neurologic: alert and oriented. Cognitive exam, DYE COLORIST FORMULATOR and PNS grossly intact on informal exam. Psych: good eye contact, normal affect. Initial Vital Signs Initial Vital Signs: Vital Signs Temperature 97.8 F 04/03/19 11:17 Pulse Rate 80 04/03/19 11:17 Respiratory Rate 18 04/03/19 11:17 Blood Pressure 112/71 04/03/19 11:17 Pulse Oximetry 99 04/03/19 11:17 <Rachel Helton DO - Last Filed: 04/11/19 07:36> Initial Vital Signs Initial Vital Signs: Vital Signs Temperature 97.8 F 04/03/19 11:17 Pulse Rate 80 04/03/19 11:17 Respiratory Rate 18 04/03/19 11:17 Blood Pressure 112/71 04/03/19 11:17 Pulse Oximetry 99 04/03/19 11:17 Scores <ELVA Sy - Last Filed: 04/03/19 18:59> GCS Cordova coma scale eye opening: Spontaneous Jazmyn coma scale verbal response: Orientated Cordova coma scale motor response: Obey commands Cordova coma scale total score: 15 Course <ELVA Sy - Last Filed: 04/03/19 18:59> Orders Ordered: Discontinued Medications Fluorescein Sodium (Ful-Alicja) 1 mg EYE-RIGHT NOW ONE Stop: 04/03/19 11:56 Last Admin: 04/03/19 12:56 Dose: 1 mg Documented by: TIMI Proparacaine HCl (Parcaine 0.5% Ophth Cat) 2 drops EYE-RIGHT NOW ONE Stop: 04/03/19 11:56 Last Admin: 04/03/19 12:55 Dose: 2 drop Documented by: TIMI Vital Signs Vital signs: Vital Signs - 8 hr 04/03/19 11:17 Temperature 97.8 F Pulse Rate 80 Respiratory Rate 18 Blood Pressure 112/71 Pulse Oximetry 99 <Rachel Helton DO - Last Filed: 04/11/19 07:36> Orders Ordered: Discontinued Medications Fluorescein Sodium (Ful-Alicja) 1 mg EYE-RIGHT NOW ONE Stop: 04/03/19 11:56 Last Admin: 04/03/19 12:56 Dose: 1 mg Documented by: TIMI Proparacaine HCl (Parcaine 0.5% Ophth Cat) 2 drops EYE-RIGHT NOW ONE Stop: 04/03/19 11:56 Last Admin: 04/03/19 12:55 Dose: 2 drop Documented by: TIMI Vital Signs Vital signs: Vital Signs - 8 hr 04/03/19 11:17 Temperature 97.8 F Pulse Rate 80 Respiratory Rate 18 Blood Pressure 112/71 Pulse Oximetry 99 MDM - Eye Problem <PATRICK SyP - Last Filed: 04/03/19 18:59> Differential Diagnosis Differential diagnosis: Likely corneal abrasion, conjunctivitis and other (clogged puncta, excessive tear production, allergic conjunctivitis) Medical Records Attestation: I reviewed the patient's medical records. [facility] Narrative Medical decision making narrative: This is a 38 year female who has a history of breast cancer and 7th cycle of Taxol chemotherapy treatment presents to ED with only right eye excessive tearing. Patient denies other symptoms such as vision change, pain, foreign body sensation, redness with this symptoms. Fluorescein test with wood's lamp was negative for uptake. IOP was normal. Affected eye was irrigated with NS which the patient tolerated well. Physical exam was not consistent with bacterial infection of eye. Considered viral conjunctivitis versus allergic conjunctivitis. Patient advised not to rub or touch affected eye and to gently removed tears wiping from into outward with a tissue. Patient advised to use cool/warm compression on affected eye and to use [id number]. The patient was instructed to f/u with sap architect to rule out other etiologies considering puncta/tear duct obstruction or problem with lacriminal duct. Reviewed Taxol medication side effects and this is unlikely related to the medication. Strict return precautions were discussed with the patient and a referral number to ophthalmology clinic has been provided. Patient verbalized understanding and agrees with the treatment plan. <Rachel Helton DO - Last Filed: 04/11/19 07:36> [facility] Narrative Medical decision making narrative: patent case was discussed with myself. We discussed possible etiology. No foreseen uptake or signs of ulceration or abrasion. Patient's pressure was appropriate with the [place]. We discussed possibility that it could be related to her medications although it's only 1 eye and not both which makes this less likely. Plan for short-term follow-up with Ophthalmology. Patient to return if worsening symptoms. Discharge Plan Departure Patient Disposition: Home Clinical Impression: Watery eyes Discharge Date/Time: 04/03/19 13:01 Instructions: DI for Eye Allergic Reaction Activity Restrictions/Additional Instructions: You have been diagnosed with [right side watery eye. The fluorescein exam and eye pressure exams were normal. Very mildly decreased vision on R eye as compared to L eye. Please do not rub your eyes. You can use OTC artificial tears several times a day. Continue to take Claritin in case this is related to allergy conjunctivitis. If this is viral conjunctivitis he can spread to other eye and to other peple so please take precautions]. What to do: *Take your medications as directed. *Follow up with your primary care provider/sap architect in 2-3 days, call for an appointment. Let them know you were seen in the ED and that we asked you to be seen in follow up. *Return to ED if you have any new, worsening, or concerning symptoms, such as [decreased vision, eye pain, foreign body sensation, redness spreading to eye lids and face, fever, or any other acute concerns]. Prescriptions: No Action hyoscyamine sulfate 0.125 mg tablet 0.125 mg PO BID-QID PRN (Reason: dyspepsia) Qty: 10 RF: 0 ondansetron 4 mg tablet,disintegrating 4 mg PO Q6H PRN (Reason: nausea and vomiting) Qty: 10 RF: 0 ketorolac 10 mg tablet 10 mg PO QID PRN (Reason: pain) Qty: 10 RF: 0 Referrals: Mohsen Ba MD [Physician] -
== END 2019-04-03 13:01 | disposition home or self-care (01) ==
PROVIDERS: Emergency Provider Nurse Practitioner Family
DX: H04.201 Unspecified epiphora, right side (principal)
CPT/HCPCS: 99281; 99282